=== PATIENT | male | born 1965 | race Caucasian/White ===

== ENCOUNTER 2024-08-23 12:42 | Outpatient (AMB) | payer OTHER, SELFPAY ==
--- NOTE | 2024-08-23 12:49 | MHC.PC.OV ---
Vital Signs 08/23/24 12:53 Height 5 ft 6.34 in Weight 183 lb 8 oz BMI 29.3 BP 110/72 Blood Pressure Location Lt brachial Position Sitting Pulse 83 Pulse Source Pulse Oximeter Temp 97.3 F Temp Source Temporal Artery Scan Pulse Oximetry (%) 98 Oxygen Delivery Method Room Air Intake Visit Reasons: establish care Intake Note: Patient is a new patient here to establish care for Asthma. Transferring care from [place] ([place] Medical records have been requested and have not received. Grain Blender Required: No Audio Visual Specialist: Not Required per policy Accompanied by: Self / Same As Patient Allergies No Known Allergies [No Known Allergies*] Allergy (Verified 08/23/24 13:15) Medication List - Last Reconciled 08/23/24 by Seda Alarcon MD apple cider vinegar 250 mg PO DAILY ascorbic acid (vitamin C) 1 g PO DAILY aspirin 81 mg PO DAILY cholecalciferol (vitamin D3) 50 mcg PO DAILY zbkkxjts-uvc-xhlvv-vit K-lycop 400-20-370 mcg (Men's 50 Plus Multivitamin) 1 tab PO DAILY omeprazole magnesium (Prilosec OTC) 20 mg PO DAILY semaglutide From [facility] Tobacco use date assessed: 08/23/24 Dental Screening Dental Screen Date: 08/23/24 Did you have a dental visit in the last 12 months?: Yes Did you have a dental problem in the last 6 months where you did not have access to dental care?: No Was dental information given to patient?: Patient has dentist HPI establish care HPI Details 30 lbs lost weight 10 weeks. aspirin PFSH Medical History (Updated 08/23/24 @ 13:46 by Seda Alarcon MD) Bochdalek hernia Surgical History (Updated 08/23/24 @ 13:35 by Seda Alarcon MD) History of meniscectomy of right knee History of meniscectomy of left knee Family History (Updated 08/23/24 @ 13:35 by Seda Alarcon MD) Maternal Grandfather Pancreatic cancer Social History (Updated 08/23/24 @ 13:36 by Seda Alarcon MD) Housing: House Alcohol intake: current Alcohol intake frequency: a few times a month Comment: 2x a week 2 drink Patient Tobacco Use Status: Current everyday Tobacco user Tobacco use type: Cigar Cigarettes Per Day: 1 Years Smoked: Cigar a day e-Cigarette/Vaping Use: Never Used Second Hand Smoke Exposure: Yes service: No Current occupational status: employed Cognitive needs: No Hearing needs: No Vision needs: Yes (Glasses) Questionnaire PHQ-9 Over the last 2 weeks, how often have you been bothered by any of the following problems? 1. Little interest or pleasure in doing things: not at all 2. Feeling down, depressed, or hopeless: not at all 3. Trouble falling or staying asleep, or sleeping too much: not at all 4. Feeling tired or having little energy: not at all 5. Poor appetite or overeating: not at all 6. Feeling bad about yourself - or that you are a failure or have let yourself or your family down: not at all 7. Trouble concentrating on things, such as reading the newspaper or watching television: not at all 8. Moving or speaking so slowly that other people could have noticed. Or the opposite - being so fidgety or restless that you have been moving around a lot more than usual: not at all 9. Thoughts that you would be better off or of hurting yourself in some way: not at all Total score: 0 Depression Screening Interpretation: Negative Depression Screening Done: Yes Source: Developed by Drs. Cornelio Roe, Jaimie Cody, Phu Ontiveros and colleagues, with an educational blanca from [employer]. Thrive Questionnaire Date Thrive assessed: 08/21/24 I am a: Patient What is your living situation today?: I have a steady place to live Within the past 12 months, did the food you bought not last and you didn't have the money to get more?: Never true Within the past 12 months, did you worry whether your food would run out before you got money to buy more?: Never true Do you have trouble paying for medicines?: No Do you have trouble getting transportation to medical appointments?: No Do you have trouble paying your heating and electricity bill?: No Do you have trouble taking care of your child, family member or friend?: No Do you have trouble with day-to-day activities such as bathing, preparing meals, shopping, managing finances, etc.?: No Are you currently unemployed and looking for a job?: No Are you interested in more education?: No Please select the resources that you would like help with: None Currently or been in a relationship where the following occur: No concerns reported THRIVE Score: 0 AUDIT C Alcohol Use Questionnaire (AUDIT-C) 1. How often do you have a drink containing alcohol?: 2-3 times a week 2. How many drinks containing alcohol do you have on a typical day when you are drinking?: 1 or 2 3. How often do you have six or more drinks on one occasion?: Never Total Score: 3 HAILY-7 AMB Questionnaire HAILY-7 Date HAILY - 7 assessed: 08/23/24 Feeling nervous, anxious, or on edge: 0 = Not at all Not being able to stop or control worryin = Not at all Worrying too much about different things: 0 = Not at all Trouble relaxin = Not at all Being so restless that it is hard to sit still: 0 = Not at all Becoming easily annoyed or irritable: 0 = Not at all Feeling afraid as if something awful might happen: 0 = Not at all Total HAILY-7 score (0-4 normal; 5-9 mild; 10-14 moderate; 15-21 severe): 0 Source: Developed by Drs. Cornelio Roe, Jaimie Cody, Phu Ontiveros and colleagues, with an educational blanca from [employer]. Physical exam (Primary Care) Vital Signs: Last Vital Signs Temp 97.3 F 08/23/24 12:53 Pulse 83 08/23/24 12:53 BP 110/72 08/23/24 12:53 Pulse Ox 98 08/23/24 12:53 Oxygen Delivery Method Room Air 08/23/24 12:53 BMI result Body Mass Index 29.3 Tobacco/Smoking Status: Tobacco use Status Tobacco use date assessed 08/23/24 08/23/24 12:59 Patient Tobacco Use Status Current everyday Tobacco 08/23/24 13:36 Tobacco use type Cigar 08/23/24 13:36 e-Cigarette/Vaping Use Never Used 08/23/24 13:36 PHQ-9: PHQ-9 Score PHQ-9: Total score 0 08/23/24 13:28 Depression Screening Interpretation: Negative Thrive Assessment: Date of Thrive Assessment Date Thrive assessed 08/21/24 08/23/24 12:50 Currently or been in a relationship where the following occur: No concerns reported Const General: alert; No acute distress Eyes Conjunctivae: conjunctivae normal Resp Auscultation: clear to auscultation bilaterally Cardio Rate: regular rate Rhythm: regular rhythm GI Inspection: Yes normal to inspection Extrem General: Yes normal to inspection and No edema Coding Level of Care Code New Pt Level 4 (36747) Diagnoses Overweight (BMI 25.0-29.9) E66.3 GERD (gastroesophageal reflux disease) K21.9 Asthma J45.909 CHELLE (obstructive sleep apnea) G47.33 Colon cancer screening Z12.11 History of nicotine dependence Z87.891 Assessment & Plan Assessment & Plan (1) Overweight (BMI 25.0-29.9): Code(s): E66.3 - Overweight Category: Medical Plan: Diet and exercise (2) GERD (gastroesophageal reflux disease): Code(s): K21.9 - Gastro-esophageal reflux disease without esophagitis Category: Medical Plan: Avoid the foods that causes that usually spicy foods, tomato products, juices, coffee, soda and foods that your sensitive to. After eating do not lie down, allow 3-4 hours before in lie down. And keep the head of bed above 30 degrees to avoid the acid from going up. (3) Asthma: Code(s): J45.909 - Unspecified asthma, uncomplicated Category: Medical (4) CHELLE (obstructive sleep apnea): Comment: [facility] Code(s): G47.33 - Obstructive sleep apnea (adult) (pediatric) Category: Medical (5) Colon cancer screening: Code(s): Z12.11 - Encounter for screening for malignant neoplasm of colon Category: Medical (6) History of nicotine dependence: Code(s): Z87.891 - Personal history of nicotine dependence Category: Medical Plan History of Present Illness Health Maintenance - Vaccinations: Received shingles vaccination approximately two years ago; hepatitis series completed 20 years ago. - Annual lung cancer screening due to smoking history. - Previous colonoscopy performed in 2016 with plans for follow-up. - Lifestyle: Engaged in regular physical activity and dietary improvements to manage weight and hyperlipidemia. 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 - Family Status: , no specific details on children discussed. - Substance Use: Daily usage of cigars; consumes alcohol twice weekly. - Exercise: Active lifestyle including playing golf multiple times a week and avoiding elevator use. - Nutrition: Improved diet with reduced intake; takes fiber supplement ordered online. Review of Systems - Constitutional: Denies nausea, vomiting, fever. - Respiratory: Denies current asthma exacerbations. - Cardiovascular: Denies heart problems. - Gastrointestinal: Reports history of GERD, denied current abdominal pain or constipation. - Neurological: Denies history of seizures. - Musculoskeletal: Acknowledges past bilateral knee surgeries. - Hematologic/Lymphatic: Denies bleeding concerns. Physical Exam - General- No swelling or pain reported during examination. - Respiratory- Unremarkable, normal breath sounds. - Gastrointestinal- Abdomen without notable abnormalities. Results Plan The plan is to continue Omeprazole for GERD and maintain the current regimen of Semaglutide to support further weight loss goals. Dietary improvements will persist to manage hyperlipidemia. The patient will continue engagement in physical activity, such as golf, to aid in weight management. I instructed the patient on the potential risks of ongoing cigar usage, emphasizing the importance of regular health screenings and vaccinations. Patient was informed and verbally consented to the use of an ambient scribe for clinic note documentation during this visit. Discussion Notes I discussed the primary diagnosis of GERD, along with current management strategies involving Omeprazole with the patient, addressing relief and potential aggravating factors like NSAID use. For weight management, the patient is on Compounded Semaglutide, with close monitoring to achieve the target weight. I reviewed the benefits and potential risks, like transient heartburn due to slow gastric motility and limited long-term data of Semaglutide use. The patient consented to preventive health strategies, including recommended colonoscopy and ongoing lung cancer screening. We discussed stopping cigars as a preventive measure against respiratory sequelae. Patient Instructions - Continue Omeprazole as prescribed for GERD. - Administer Semaglutide injections weekly to continue weight loss. - Aim for healthy dietary choices to manage cholesterol levels. - Maintain regular physical activity and report any changes in symptoms. - Schedule colonoscopy screening as planned. - Avoid NSAIDs to prevent possible esophageal irritation. - Consider reduction or cessation of cigar smoking. - Ensure routine health screenings and vaccination updates. - Arrange for blood tests while fasting and follow up on any significant results. Orders: Orders Complete Blood Count Auto Diff Today K21.9 - Gastro-esophageal reflux disease without esophagitis Free T4 (Free Thyroxine) Today K21.9 - Gastro-esophageal reflux disease without esophagitis Lipid Panel Today E78.00 - Pure hypercholesterolemia, unspecified, K21.9 - Gastro-esophageal reflux disease without esophagitis Prostate Specific Antigen Scr Today K21.9 - Gastro-esophageal reflux disease without esophagitis Magnesium Today K21.9 - Gastro-esophageal reflux disease without esophagitis Uric Acid Today K21.9 - Gastro-esophageal reflux disease without esophagitis Comprehensive Met. Panel Today K21.9 - Gastro-esophageal reflux disease without esophagitis Thyroid Stimulating Hormone Today K21.9 - Gastro-esophageal reflux disease without esophagitis Vitamin B12 and Folate Today K21.9 - Gastro-esophageal reflux disease without esophagitis UA CC w/rflx Micro + Cult Today K21.9 - Gastro-esophageal reflux disease without esophagitis, R30.0 - Dysuria Referrals Gastroenterology Referral Z12.11 - Encounter for screening for malignant neoplasm of colon Lung Cancer Screening Referral Z87.891 - Personal history of nicotine dependence Medications: New albuterol sulfate 90 mcg/actuation 2 puffs inhalation Q4-6H PRN 8.5 grams 0RF Shortness Of Breath J45.909 - Unspecified asthma, uncomplicated
[2024-08-23 12:53] VITALS: BP 110/72; PULSE 83; TEMP 36.3; O2SAT 98; BMI 29.3
== END 2024-08-23 14:04 | disposition home or self-care (01) ==
PROVIDERS: PCP Internal Medicine; Visit Provider Internal Medicine
DX: E66.3 Overweight (principal); K21.9 Gastro-esophageal reflux disease without esophagitis; J45.909 Unspecified asthma, uncomplicated; G47.33 Obstructive sleep apnea (adult) (pediatric); Z12.11 Encounter for screening for malignant neoplasm of colon; Z87.891 Personal history of nicotine dependence

== ENCOUNTER → 2024-08-23 12:42 | Outpatient (BNVA) | payer OTHER, SELFPAY | PROVIDERS: Visit Provider Internal Medicine ==

== ENCOUNTER 2024-08-29 06:08 | Outpatient (REF) | payer OTHER, SELFPAY ==
[2024-08-29 10:10] LABS: MANUAL DIFF FLAG NO
[2024-08-29 10:18] LABS: Basophils Percent Auto 0.6 % (0-2); Eosinophils Absolute Auto 0.2 X10*3/uL (0.0-0.4); Eosinophils Percent Auto 4.2 % (0-4); Hematocrit 42.1 % (42.0-52.0); Hemoglobin 14.6 g/dl (14.0-18.0); Imm Gran Abs Auto 0.02 X10*3/uL (0.00-0.03); Imm Gran Pct Auto 0.4 % (0.0-0.4); Lymphocytes Absolute Auto 1.2 X10*3/uL (1.2-4.9); Lymphocytes Percent Auto 24.4 % (20-40); Mean Corpuscular HGB Conc 34.7 g/dl (31.0-36.0); Mean Corpuscular Hemoglobin 31.1 pg (27.0-33.0); Mean Corpuscular Volume 89.8 fL (80.0-98.0); Mean Platelet Volume 10.5 fL (9.4-12.4); Monocytes Absolute Auto 0.3 X10*3/uL (0.1-1.2); Monocytes Percent Auto 6.9 % (2-11); Neutrophils Percent Auto 63.5 % (45-73); Platelet Count 234 X10*3/uL (160-400); Red Blood Count 4.69 X10*6/uL (4.60-5.80); Red Cell Distribution Width 12.2 % (11.0-16.0); White Blood Count 4.8 X10*3/uL (4.8-10.8)
[2024-08-29 11:08] LABS: Alanine Aminotransferase 18 U/L (0-40); Albumin Level 4.4 g/dL (3.5-5.0); Alkaline Phosphatase 40 U/L (39-117); Anion Gap 14 (12-20); Aspartate Amino Transferase 28 U/L (5-37); Bilirubin Total 0.8 mg/dL (0.0-1.0); Blood Urea Nitrogen 16 mg/dL (9-16); Calcium 9.5 mg/dL (8.4-10.2); Carbon Dioxide 23 mmol/L (22-29); Chloride 109 mmol/L (96-108); Cholesterol 148 mg/dL (<200); Estimated Glomerular Filt Rate > 60; Free T4 (Free Thyroxine) 1.05 ng/dL (0.71-1.85); Glucose Random 94 mg/dL (60-115); HDL Cholesterol 38 mg/dL (>40); LDL Cholesterol Calculated 85 mg/dL (<100); Magnesium 2.1 mg/dL (1.6-2.6); Potassium 4.2 mmol/L (3.3-5.1); Sodium 142 mmol/L (135-145); Thyroid Stimulating Hormone 1.34 uIU/mL (0.32-4.0); Total Protein 6.5 g/dL (6.5-8.0); Triglycerides 128 mg/dL (<150); Uric Acid 6.3 mg/dL (3.4-7.0)
[2024-08-29 11:12] LABS: Appearance Urine Turbid; Color Urine Yellow; Glucose Urine UA Negative (Negative); Leukocyte Esterase Urine Negative (Negative); Nitrite Urine Negative (Negative); PH 5.5 (5.0-9.0); Urine Blood Negative (Negative); Urine Ketones 15 mg/dL (Negative); Urine Protein Negative (Neg-Trace)
[2024-08-29 11:19] LABS: Folate 13.4 ng/mL (> or = 4.0); Prostate Specific Antigen Scr 0.92 ng/mL (<0.05-4.0); Vitamin B12 225 pg/mL (200-900)
== END 2024-08-29 06:09 | disposition home or self-care (01) ==
LOC: HO.HMGCLDS 06:08
PROVIDERS: PCP Internal Medicine; Visit Provider Internal Medicine
DX: K21.9 Gastro-esophageal reflux disease without esophagitis (principal); E78.00 Pure hypercholesterolemia, unspecified; R30.0 Dysuria; Z12.5 Encounter for screening for malignant neoplasm of prostate
CPT/HCPCS: 36415; 80053; 80061; 81003; 82607; 82746; 83735; 84153; 84439; 84443; 84550; 85025

== ENCOUNTER 2024-10-18 08:39 | Outpatient (AMB) | payer OTHER, SELFPAY ==
--- NOTE | 2024-10-18 08:44 | A.OFFVIS_ITS ---
Vital Signs 10/18/24 08:45 Height 5 ft 6.34 in Weight 176 lb 5.917 oz BMI 28.2 BP 135/71 Blood Pressure Location Lt brachial Position Sitting Pulse 82 Intake Visit Reasons: Orange screening Intake Note: Kumar presents in the office as a colonoscopy screening. CC: States that he wants to have a colonoscopy - it was a 10 year colo recall but he wants to do everything before he retires! 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 Referred by PCP for pre colonoscopy screening. His last colonoscopy was in 2016 at another institution, with normal findings and 10-year recall recommended. Pt desires early screening as proactive health measure prior to upcoming penitentiary. Reports chronic constipation since starting semaglutide (Ozempic) 6 mos ago; stools 2-3x/wk, hard if not using OTC powder stool softener (name unknown), which softens stool but does not increase frequency. Constipation began after Ozempic initiation; prior to this, bowel habits were regular. GERD sx present for several yrs: previously burning sensation and transient dysphagia with steak, now resolved with OTC omeprazole (5x/wk) and dietary modification. Shares he previously used NSAIDs heavily (hx liz), now uses Tylenol and occasional Motrin PRN, no current NSAID dependence. Reports well-controlled asthma except with URIs, uses albuterol inhaler PRN. CHELLE managed with [facility]. No cardiac, ux specialist care otherwise; participates in annual lung CA screening. Patient denies: fever/chills, n/v, appetite changes, regurgitation, dysphasia, unintentional wt loss, ab pain or melena/hematochezia. SOCIAL HISTORY - Alcohol: 1 beer/wk (); occasional nip while golfing, minimal. - Tobacco: Former cigarette smoker (30+ yrs, quit 10 yrs ago); current daily cigar (no inhalation, past 2 yrs). - Drugs: Denies marijuana/rec drug use; uses OTC melatonin for sleep (no THC). 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 - Exercise: Walks stairs, walks w/ , golf (rides cart). - family hx as below -denies personal hx of CA -tolerated anesthesia in the past without difficulty. [facility] Medical History (Updated 10/18/24 @ 09:32 by Tammie Spain CNP) Constipation Personal history of nicotine dependence Bochdalek hernia Surgical History (Updated 10/18/24 @ 08:47 by BRETT Chong) Hx of colonoscopy History of esophagogastroduodenoscopy (EGD) History of meniscectomy of right knee History of meniscectomy of left knee Family History Maternal Grandfather Pancreatic cancer Social History Housing: House Alcohol intake: current Alcohol intake frequency: a few times a month Comment: 2x a week 2 drink Patient Tobacco Use Status: Current everyday Tobacco user Tobacco use type: Cigar Cigarettes Per Day: 1 Years Smoked: Cigar a day e-Cigarette/Vaping Use: Never Used Second Hand Smoke Exposure: Yes service: No Current occupational status: employed Cognitive needs: No Hearing needs: No Vision needs: Yes (Glasses) Review of Systems Const Reports as per HPI ENT Reports as per HPI Card Reports as per HPI Resp Reports as per HPI GI Reports as per HPI Reports as per HPI Physical Exam Vital Signs: Last Vital Signs Pulse 82 10/18/24 08:45 BP 135/71 10/18/24 08:45 BMI result Body Mass Index 28.2 Const General: healthy appearing, no acute distress and well developed Nutritional Appearance: well nourished Orientation/consciousness: patient oriented x3 HEENT Head: Yes normal to inspection, Yes normocephalic and Yes atraumatic Face and sinus: Yes normal facial exam Eyes General: appearance normal, both eyes and all related structures Neck Neck: Yes normal visual inspection Resp Effort & Inspection: normal respiratory effort, able to speak in complete sentences, no tracheal deviation and symmetric chest movement Auscultation: clear to auscultation bilaterally Cardio Jugular venous distension: no JVD Rate: regular rate Rhythm: regular rhythm Heart sounds: S1 normal heart sound present, S2 normal heart sound present, no gallops and no murmurs GI Inspection: Yes normal to inspection and No distended Palpation (GI): Soft to palpation, not firm, nontender and No hepatosplenomegaly present Auscultation: normal bowel sounds Neuro General: patient oriented x3 Gait exam (Neuro): Normal gait present Psych Appearance: grossly normal Mental Status: mental status grossly normal Speech and movement: Normal speech and movement present Affect: normal affect Attitude: cooperative Thought process: Normal thought process present Thought content: Normal thought content present Insight: Good insight present (Psych) Judgement: Good judgement present (Psych) Assessment & Plan Assessment & Plan (1) Colon cancer screening: Code(s): Z12.11 - Encounter for screening for malignant neoplasm of colon Category: Medical Plan: Last colonoscopy 2015 (normal) at outside facility, no worrisome hx Diagnostic Tests: Prescriptions for laxative tablets and Miralax sent to pharmacy; instructions for Gatorade purchase and clear liquid diet given. Medications: - understands to hold Ozempic and aspirin 7 days prior to procedure. - Use Tylenol if needed for pain. Patient educated on procedure preparation, including avoiding certain foods and ensuring clear liquid intake. Advised on necessity for ride post-procedure due to sedation. (2) Constipation: Code(s): K59.00 - Constipation, unspecified Category: Medical Qualifiers: Constipation type: drug induced constipation Qualified Code(s): K59.03 - Drug induced constipation Plan: Constipation onset w/ Ozempic, partial response to OTC softener, no alarm sx. Monitor; no acute workup in absence of red flags. Medications: Continue OTC stool softener as tolerated. Reinforced lifestyle modifications to promote regularity: -higher fiber diet, examples provided -adequate hydration with water -150 minutes of moderate intensity exercise per week (3) GERD (gastroesophageal reflux disease): Code(s): K21.9 - Gastro-esophageal reflux disease without esophagitis Category: Medical Qualifiers: Esophagitis presence: esophagitis presence not specified Qualified Code(s): K21.9 - Gastro-esophageal reflux disease without esophagitis Plan: - Chronic sx, past poor control w/ dietary/NSAID triggers; current good control w/ OTC omeprazole + avoidance of triggers. Plan: - Additional Tests: EGD scheduled concurrent w/ colonoscopy due to chronicity, past NSAID use, and hx of intermittent dysphagia/burning. - Medications: Continue omeprazole 20mg PO ~5x/wk, PRN antacids as indicated; avoid NSAIDs. Encouraged to take omeprazole as prescribed, taken at least 30-60 minutes before a meal. Education on GERD prevention : -Advised against heavy meals; encouraged small, frequent meals instead of large ones. - Instructed to remain upright for 2?3 hours after eating. - Advised to avoid late-night meals, spicy foods, caffeine, alcohol, known dietary triggers, and tight-fitting clothing. - Emphasis placed on gradual implementation of lifestyle changes to improve adherence and symptom control. Plan Follow-up after endoscopy are sooner as needed Time: I spent a total of 25 minutes on the date of encounter which includes: Preparing to see the patient (reviewed previous documentation, test results and medical history) Performing a medically appropriate exam and/or evaluation Ordering medications, tests, and procedures Documenting clinical information in the health record Medications: New bisacodyl Take four tablets once for 1 day per colonoscopy instructions 5 mg PO ONCE 1 day 4 tabs 0RF polyethylene glycol 3350 (Miralax) per colonoscopy prep instructions 238 grams PO ONCE 238 grams 0RF Coding Level of Care Code New Pt New Pt Level 3 (79035) Patient Type New Diagnoses Colon cancer screening Z12.11 Drug-induced constipation K59.03 Constipation type: drug induced constipation Gastroesophageal reflux disease, unspecified whether esophagitis present K21.9 Esophagitis presence: esophagitis presence not specified
[2024-10-18 08:45] VITALS: BP 135/71; PULSE 82; BMI 28.2
--- OUTSIDE RECORDS SUMMARY | 2024-10-18 09:06 | XMS_ITS | Clinical Summary ---
Author Organization [facility] Address [address] [place] [phone] Phone Care Team Providers Care Dry Wall Finisher Name Role Phone Irvin Johnson MD Primary Care Provider [phone]- [phone] Allergies No known active allergies Medications albuterol HFA (PROAIR HFA ; PROVENTIL HFA ; VENTOLIN HFA) 90 mcg/actuation inhaler Inhale 2 Puffs into the lungs every 4 hours as needed for Cough or Wheezing. 08/20/2022 Active aspirin 81 mg EC tablet Take 1 Tablet by mouth daily. Active Active Problems Problem Noted Date Diagnosed Date Bochdalek hernia 10/24/2023 Overview (05/03/2024): Last Assessment & Plan: 58-year-old man former smoker part of the lung cancer screening program had a low-dose CT scan of the chest done on 10/08/2023 which had an incidental finding of a small left-sided Bochdalek hernia. I could not elicit any symptoms that might be attributed to this and the hernia is quite small containing only fat. 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 Without symptoms I do not see any reason to repair this hernia and we discussed what symptoms to look out for such as pain, vomiting, or other obstructive type symptoms. All questions were answered. He can follow-up with me on an as-needed basis moving forward. PLMD (periodic limb movement disorder) 2 Obstructive sleep apnea 02/09/2017 Overview (05/03/2024): [facility] Home Polysomnogram: Date 02/03/2017; AHI 5, Unclassified apneas 0; Obstructive apneas 2; Central apneas 0; Mixed apneas 0; hypopneas 19; average oxygen saturation 93% (lowest 79% without saturations <88% for 5% or more of study) [facility] Polysomnogram treatment study. Date 04/27/2017 . SE 86 % SM 90 %; spent 16 % of the study in REM. At the optimal pressure of CPAP @ 9; RDI 0.2 (AHI 0.2), Central apneas 0; Obstructive apneas 0; Mixed apneas 0; hypopneas 1; RERAs 0; and, average oxygen saturation was 95%. For the entire study, PLMs ~38. [facility] diagnostic polysomnogram 06/04/2021. Weight 201; BMI 33. AHI 15; REM AHI 26. 86 hypopneas; no apneas. Average oxygen saturation 92% with oxygen sharon 78%. Time with saturations less than 89% was 11.6 minutes. PLM's at 16. Obstructive sleep apnea-moderate with all hypopneas; without nocturnal hypoxemia but with PLMD per 2021 polysomnogram. COPD (chronic obstructive pu lmonary disease) ([facility] V24, [facility] V28) 10/29/2016 Chronic RUQ pain 12/15/2012 Overview (05/03/2024): Onset approx 1970's. Normal CT, US, EGD 2012. Improved with 30 lb weight loss as of 09/05/2015. Asthma 09/05/2012 Hyperlipidemia 01/09/2010 Encounters Date Type Department Care Team Description 09/21/2024 Telephone Lung Screening Program - [address] [phone] Lali oCdy [place] Appointment (1st notification) from Last 3 Months Immunizations Name Administration Dates Next Due Influenza trivalent, 0.5mL, preservative free (Fluarix; FluLaval; Fluzone) ages 6mo and older (Afluria) 3 years and older 02/24/2011 Influenza, Unspecified 02/13/2021 Pneumococcal polysaccharide 23 valent (Pneumovax 23) 2yo and older 06/09/2016 Tdap Tetanus diptheria acell ular pertussis (Boostrix; Adacel) 7yo and older 06/30/2021,01/05/2010 Zoster recombinant (Shingrix) 19yo and older ,03/01/2022 Surgical History Surgery Date Site/Laterality Comments ESOPHAGOGASTRODUODENOSCOPY 2012 PROCEDURE: [place] ESOPHAGOGASTRODUODENOSCOPY TRANSORAL DIAGNOSTIC; COMMENT: normal COLONOSCOPY 09/05/2015 PROCEDURE: HISTORICAL COLONOSCOPY; COMMENT: normal KNEE SURGERY Left PROCEDURE: HISTORICAL KNEE SURGERY; COMMENT: meniscal tear Medical History Medical History Date Comments Hyperlipidemia 01/09/2010 DX:Hyperlipidemi a Asthma 09/05/2012 DX:Asthma Chronic RUQ pain 12/15/2012 DX:Chronic RUQ pain; COMMENT: Normal CT, US, EGD 2012. Family History Medical History Relation Name Comments Prostate cancer Maternal Grandfather Other: COPD Mother Autoimmune disease Neg Hx Breast cancer Neg Hx Colon cancer Neg Hx Coronary artery disease Neg Hx Diabetes Neg Hx Heart attack Neg Hx Heart failure Neg Hx Hyperlipidemia Neg Hx Hypertension Neg Hx Mental illness Neg Hx Sleep apnea Neg Hx Thyroid disease Neg Hx Relation Name Status Comments Father Alive Maternal Grandfather (Age 65) pr ostate cancer Maternal Grandmother (Age 70) Mother Alive asthma Paternal Grandfather (Age 80) Paternal Grandmother esophag eal cancer Sister Alive asthma Social History Tobacco Use Types Packs/Day Years Used Date Smoking Tobacco: Former Cigarettes 1 32.3 0 05/16/1980 - 09/13/2012 Smokeless Tobacco: Former Quit: 05/16/1983 Alcohol Use Standard Drinks/Week Comments Yes 5 (1 standard drink = 0.6 oz pur e alcohol) Sex and Gender Information Value Date Recorded Sex Assigned at Not on file Legal Sex Male 2:30 PM EST Gender Identity Not on file Sexual Orientation Not on file Obstetrics History Last Filed Vital Signs Vital Sign Reading Time Taken Comments Blood Pressure 127/78 12/05/2023 3:25 PM EDT Sitting R Arm Pulse 81 12/05/2023 3:25 PM EDT Temperature - - Respiratory Rate - - Oxygen Saturation - - Inhaled Oxygen Concentration - - Weight 94.8 kg (209 lb 1.6 oz) 12/05/2023 3:25 PM EDT Height 167.6 cm (5' 6 ) 12/05/2023 3:25 PM EDT Body Mass Index 33.75 12/05/2023 3:25 PM EDT Plan of Treatment Health Maintenance Due Date Last Done Comments Hepatitis B Vaccines (1 of 3 - 19+ 3-dose series) 1984 Pneumococcal Vaccine: 50+ Years (2 of 2 - PCV) 06/09/2017 06/09/2016 Pneumococcal Vaccine: Pediatrics (0 to 5 Years) and At-Risk Patients (6 to 64 Years) (2 of 2 - PCV) 06/09/2017 06/09/2016 Depression Screening 04/23/2022 HIV Screening 04/23/2022 Social Influencers of Health Screening 04/23/2022 COVID-19 Vaccine (4 - 2023-2 5 season) 2024 03/20/2021, 06/27/2020, 05/29/2020 Lung Cancer Screening (Low Dose CT) 10/07/2024 10/08/2023, 09/23/2022, 09/15/2021 Influenza Vaccine (Season Ended) 2025 02/13/2021, 02/24/2011 Colorectal Cancer Screening: Colonoscopy 09/04/2025 09/05/2015 Cholesterol Screening (Lipid Panel) 10/24/2028 10/25/2023, 10/25/2023 DTaP,Tdap,and Td Vaccines (3 - Td or Tdap) 06/30/2031 06/30/2021, 01/05/2010 RSV Immunization Adult Patients (1 - 1-dose 75+ series) 2040 Hepatitis C Screening Completed 05/20/2015 Zoster Vaccines Completed 06/10/2022, 03/01/2022 HIB Vaccines Aged Out No longer eligi ble based on patient's age to complete this topic HPV Vaccines Aged Out No longer eligi ble based on patient's age to complete this topic Hepatitis A Vaccines Aged Out No long er eligible based on patient's age to complete this topic IPV Vaccines Aged Out No longer eligi ble based on patient's age to complete this topic MMR Vaccines Aged Out No longer eligi ble based on patient's age to complete this topic Meningococcal ACWY Vaccine Aged Out N o longer eligible based on patient's age to complete this topic Meningococcal B Vaccine Aged Out No l onger eligible based on patient's age to complete this topic RSV Immunization Patients Under 20 months Aged Out No longer eligible b ased on patient's age to complete this topic Varicella Vaccines Aged Out No longer eligible based on patient's age to complete this topic Procedures Procedure Name Priority Date/Time Associated Diagnosis Comments LIPID PANEL Routine 10/25/2023 CT LUNG SCREENING LOW DOSE Routine 09/23/2022 7:44 PM EDT Personal history of nicotine dependence HM COLONOSCOPY Routine 09/05/2015 HEPATITIS C SCREENING Routine 05/20/2015 from Last 3 Months or Most Recently Relevant to Health Maintenance Results * (ABNORMAL) Lipid panel (10/25/2023) LDL/HDL Ratio 6(A) 0 - 4 Triglycerides 422(A) 0 - 150 mg/dL Cholesterol 201(A) 0 - 200 mg/dL HDL 34(A) >=40 mg/dL LDL Cholesterol 83 0 - 100 mg/dL Blood Venous blood specimen / Unknown us Historical Provider LAB BLOOD ORDERABLES Tiana phillips Result * CT LUNG SCREENING LOW DOSE (09/23/2022 7:44 PM EDT) Anatomical Region Laterality Modality Computed Tomogra phy 09/18/2022 7:22 AM EDT Narrative 09/23/2022 7:44 PM EDT [facility] Diagnostic Imaging Department [address] [place] [id number] Patient: ??BUDDY DUMONT,DARRYL Bullock ?/Age/Sex: 1965 - 57 - M Unit#: ??[id number] ? Location/Status: ??SPDICATLS/REG CLI ? Mnemonic/Ordering Site: ??CTLUNGLD/SPCT Ordering Physician: ??YUNG LOPEZ MD CT Lung Screening Low Dose - 09/18/22 - PROCEDURE: Chest CT INDICATION: Former smoker, lung cancer screening, 60 pack year smoking history TECHNIQUE: Chest CT without contrast. Multi planar reformats were created and interpreted. The examination was performed utilizing dose reduction techniques. Total DLP 154 COMPARISON: ??09/15/2021 FINDINGS: LUNGS/PLEURA: Central airways are patent. ??No new or suspicious pulmonary nodules. ??No pleural effusion or pneumothorax. ??Linear atelectasis/scarring seen at the lung bases. MEDIASTINUM: Thyroid gland is unremarkable. No mediastinal or hilar lymphadenopathy. Cardiac chambers are normal in size. No pericardial effusion. Esophagus is normal. CHEST WALL: No axillary lymphadenopathy or superficial hematoma. ??Right chest wall vagal nerve stimulator noted. UPPER ABDOMEN:Hepatic steatosis. BONES: Bones are normal for age. IMPRESSION: No new or suspicious pulmonary nodules. ??Lung RADS 1-negative. ??Recommend continued screening with low-dose chest CT in 12 months. Dictating Physician: ??BERNICE VASQUES MD Electronically Signed by: ??BERNICE VASQUES MD Dic Date/Time: ??09/23/221934 Sign date/Time: ??09/23/221943 Procedure Note Bernice Vasques MD - 06/17/2023 [facility] Diagnostic Imaging Department [address] [place] [id number] Patient: DARRYL THOMPSON JR Kobe /Age/Sex: 1965 - 57 - M Unit#: [id number] Location/Status: SPDICATLS/REG CLI Mnemonic/Ordering Site: [facility] Ordering Physician: YUNG LOPEZ MD CT Lung Screening Low Dose - 09/18/22 - PROCEDURE: Chest CT INDICATION: Former smoker, lung cancer screening, 60 pack year smokinghistory TECHNIQUE: Chest CT without contrast. Multi planar reformats were createdand interpreted. The examination was performed utilizing dose reductiontechniques. Total DLP 154 COMPARISON: 09/15/2021 FINDINGS: LUNGS/PLEURA: Central airways are patent. No new or suspiciouspulmonary nodules. No pleural effusion or pneumothorax. Linearatelectasis/scarring seen at the lung bases. MEDIASTINUM: Thyroid gland is unremarkable. No mediastinal or hilar lymphadenopathy. Cardiac chambers are normal in size. No pericardialeffusion. Esophagus is normal. CHEST WALL: No axillary lymphadenopathy or superficial hematoma. Rightchest wall vagal nerve stimulator noted. UPPER ABDOMEN:Hepatic steatosis. BONES: Bones are normal for age. IMPRESSION: No new or suspicious pulmonary nodules. Lung RADS 1-negative.Recommend continued screening with low-dose chest CT in 12 months. Dictating Physician: BERNICE VASQUES MD Electronically Signed by: BERNICE VASQUES MD Dic Date/Time: 09/23/221934 Sign date/Time: 09/23/221943 Yung Lopez MD IMG CT PROCEDURES Final Result * Hm Colonoscopy (09/05/2015) Colonoscopy normal, abstracted Anatomical Region Laterality Modality Other Historical Provider HEALTH MAINTENANCE Final Result * Hepatitis C Screening (05/20/2015) Hepatitis C Screening abstracted us Historical Provider HEALTH MAINTENANCE Final Result from Last 3 Months or Most Recently Relevant to Health Maintenance Insurance [employer] Care Teams Dry Wall Finisher Relationship Specialty Start Date End Date Irvin Johnson MD [address] [place] [address] PCP - General Internal Medicine 12/28/21
== END 2024-10-18 09:18 | disposition home or self-care (01) ==
LOC: HO.HGI 08:40
PROVIDERS: PCP Internal Medicine; Visit Provider Nurse Practitioner Family
DX: Z01.818 Encounter for other preprocedural examination (principal); Z12.11 Encounter for screening for malignant neoplasm of colon; K59.03 Drug induced constipation; K21.9 Gastro-esophageal reflux disease without esophagitis
CPT/HCPCS: S0285

== ENCOUNTER → 2024-10-18 08:39 | Outpatient (BNVA) | payer OTHER, SELFPAY | PROVIDERS: PCP Internal Medicine; Visit Provider Nurse Practitioner Family ==

== ENCOUNTER 2024-11-02 10:43 | Outpatient (AMB) | payer OTHER, SELFPAY ==
--- NOTE | 2024-11-02 07:50 | A.OFFVIS_ITS ---
Intake Visit Reasons: Former Smoker Allergies No Known Allergies (No Known Allergies*) Allergy (Verified 10/18/24 08:47) HPI HPI Former Smoker: Details: Initial visit for this 59yo smoker with a 25+PYH. Patient started smoking at age 15 for 29 years at 1ppd. He quit smoking cigarettes 15 years ago In last 2 years started smoking cigars - 4 cigars a weeks. . Denies marijuana use. Denies second hand smoke exposure. Denies exposure to chemicals or substances like asbestos. . Denies known family history of lung cancer. Denies personal history of cancers. Denies chest CT in last year. . Denies recent travel outside the [place]. Denies recent respiratory illness or recent hospitalization for respiratory issues. Reports history testing positive for COVID. Admits receiving COVID Vaccine. . Reports history CHELLE- has inspire implant in right chest. Denies fever, chills, new/worsening cough, hemoptysis, hoarseness or dysphagia. Denies significant chest pain, significant dyspnea or unintentional weight loss. Patient Lung Cancer Screening Questionnaire reviewed with patient by provider. . Shared Decision Making Completed. Patient meets criteria. Discussed in detail with patient, the risk vs benefit of LDCT screening. Patient consents to proceed with scan. Discussed and encouraged smoking cessation. [facility] Medical History (Updated 11/02/24 @ 10:59 by Larisa Tam PA-C) Constipation Personal history of nicotine dependence Bochdalek hernia Surgical History (Updated 10/18/24 @ 08:47 by BRETT Chong) Hx of colonoscopy History of esophagogastroduodenoscopy (EGD) History of meniscectomy of right knee History of meniscectomy of left knee Family History Maternal Grandfather Pancreatic cancer Social History (Updated 11/02/24 @ 11:00 by Larisa Tam PA-C) Housing: House Alcohol intake: current Alcohol intake frequency: a few times a month Comment: 2x a week 2 drink Patient Tobacco Use Status: Current everyday Tobacco user Tobacco use type: Cigar Cigarettes Per Day: 1 Years Smoked: (onset 15yo, 1ppd x 29yrs, quit cigs 2009, smokes cigars 4/wk- 25+PYH) e-Cigarette/Vaping Use: Never Used Second Hand Smoke Exposure: Yes service: No Current occupational status: employed Cognitive needs: No Hearing needs: No Vision needs: Yes (Glasses) Assessment & Plan Assessment & Plan (1) Personal history of nicotine dependence: Comment: onset 15yo, 1ppd x 29yrs, quit cigarettes 2009, smokes cigars - 25+PYH) Code(s): Z87.891 - Personal history of nicotine dependence Category: Medical Plan: - SDM visit completed today in office. - Patient meets criteria for LDCT for lung cancer screening purposes and is asymptomatic. - Smoking cessation counseling offered. Patients can always call [phone]. - Will arrange for a LDCT scan of the chest for screening purposes at [facility]. - Risks, benefits, and alternatives were discussed in detail and the patient agrees to proceed. - Risks discussed include but are not limited to: radiation exposure, anxiety during testing and while awaiting results, false negatives, false positives and possibility of additional intervention such as further imaging or surgical procedures for benign disease. - Benefits are obviously detection of lung cancer at an early stage which can lead to improved outcomes. - Discussed the importance of screening program compliance with adherence to yearly LDCT scan as scheduled - or sooner interval scans for personalized screening regimen. - Discussed follow up plan. Our office will send a letter discussing results and if needed set up phone call and office visit based on CT findings. - Patient educated on results categorization and the management decisions for suspicious findings potentially found on the screening LDCT scan. Any patient with a Lung RADS score of 3 or 4 will be reviewed by a multidisciplinary team at [facility] to form a plan of action in regards to scan findings. - If further work up is warranted for a suspicious lung finding this will be followed by the Lung Cancer Screening program in conjunction with the Thoracic Surgery Department at [facility]. - A copy of the office note and LDCT will be sent to the patient's PCP - as well as documentation on any associated further plans of care. - Incidental findings on LDCT are the PCP's responsibility. These findings are indicated with an S finding on the LDCT Assessment. A note discussing the findings will be sent to the PCP who is then responsible for further management. - All questions answered.? Coding Level of Care Code Lung Cancer Screening G0296 Diagnoses Personal history of nicotine dependence Z87.891
--- OUTSIDE RECORDS SUMMARY | 2024-11-02 11:11 | XMS_ITS | Clinical Summary ---
Author Organization [facility] Address [address] [place] [phone] Phone Care Team Providers Care Voice Over Announcer Name Role Phone Irvin Johnson MD Primary Care Provider +1- [phone] Allergies No known active allergies Medications albuterol [...] 2 Obstructive sleep apnea 02/09/2017 Overview (05/03/2024): [facility] Home Polysomnogram: Date 02/03/2017; AHI 5, Unclassified apneas 0; Obstructive apneas 2; Central apneas 0; Mixed apneas 0; hypopneas 19; average oxygen saturation 93% (lowest 79% without saturations <88% for 5% or more of study) [facility] Polysomnogram treatment study. Date 04/27/2017 . SE 86 % SM 90 %; spent 16 % of the study in REM. At the optimal pressure of CPAP @ 9; RDI 0.2 (AHI 0.2), Central apneas 0; Obstructive apneas 0; Mixed apneas 0; hypopneas 1; RERAs 0; and, average oxygen saturation was 95%. For the entire study, PLMs ~38. [facility] diagnostic polysomnogram 06/04/2021. Weight 201; BMI 33. AHI 15; REM AHI 26. 86 hypopneas; no apneas. Average oxygen saturation 92% with oxygen sharon 78%. Time with saturations less than 89% was 11.6 minutes. PLM's at 16. Obstructive sleep apnea-moderate with all hypopneas; without nocturnal hypoxemia but with PLMD per 2021 polysomnogram. COPD (chronic obstructive pu lmonary disease) ([facility] V24, [facility] V28) 10/29/2016 Chronic RUQ pain 12/15/2012 Overview (05/03/2024): Onset approx 1970's. Normal CT, US, EGD 2012. Improved with 30 lb weight loss as of 09/05/2015. Asthma 09/05/2012 Hyperlipidemia 01/09/2010 Encounters Date Type Department Care Team Description 09/21/2024 Telephone Lung Screening Program - [address] [phone] Lali Cody [place] Appointment (1st notification) from Last 3 [...] Surgery Date Site/Laterality Comments ESOPHAGOGASTRODUODENOSCOPY 2012 PROCEDURE: [place] ESOPHAGOGASTRODUODENOSCOPY TRANSORAL DIAGNOSTIC; COMMENT: normal COLONOSCOPY 09/05/2015 [...] AM EDT Narrative 09/23/2022 7:44 PM EDT [facility] Diagnostic Imaging Department [address] [place] [address] Patient: DARRYL GOODWIN JR /Age/Sex: 1965 - 57 - M Unit#: [id number] Location/Status: SPDICATLS/REG CLI Mnemonic/Ordering Site: [facility] Ordering Physician: YUNG LOPEZ MD CT Lung Screening Low Dose - 09/18/22 - PROCEDURE: Chest CT INDICATION: Former smoker, lung cancer screening, 60 pack year smoking history TECHNIQUE: Chest CT without contrast. Multi planar reformats were created and interpreted. The examination was performed utilizing dose reduction techniques. Total DLP 154 COMPARISON: 09/15/2021 FINDINGS: LUNGS/PLEURA: Central airways are patent. No new or suspicious pulmonary nodules. No pleural effusion or pneumothorax. Linear atelectasis/scarring seen at the lung bases. MEDIASTINUM: Thyroid gland is unremarkable. No mediastinal or hilar lymphadenopathy. Cardiac chambers are normal in size. No pericardial effusion. Esophagus is normal. CHEST WALL: No axillary lymphadenopathy or superficial hematoma. Right chest wall vagal nerve stimulator noted. UPPER ABDOMEN:Hepatic steatosis. BONES: Bones are normal for age. IMPRESSION: No new or suspicious pulmonary nodules. Lung RADS 1-negative. Recommend continued screening with low-dose chest CT in 12 months. Dictating Physician: BERNICE VASQUES MD Electronically Signed by: BERNICE VASQUES MD Dic Date/Time: 09/23/221934 Sign date/Time: 09/23/221943 Procedure Note Bernice Vasques MD - 06/17/2023 [facility] Diagnostic Imaging Department [address] [place], [place] [id number] Patient: DARRYL GOODWIN JR Kobe /Age/Sex: 1965 - 57 - M Unit#: [id number] Location/Status: SPDICATLS/REG CLI Mnemonic/Ordering Site: [facility] Ordering Physician: YUNG LOPEZ MD CT Lung [...] MD IMG CT PROCEDURES Final Result * Colonoscopy (09/05/2015) Colonoscopy normal, abstracted Anatomical Region Laterality Modality Other Historical Provider HEALTH MAINTENANCE Final Result * Hepatitis C Screening (05/20/2015) Hepatitis C Screening abstracted us Historical Provider HEALTH MAINTENANCE Final Result from Last 3 Months or Most Recently Relevant to Health Maintenance Insurance MEDICAID Care Teams Voice Over Announcer Relationship Specialty Start Date End Date Irvin Johnson MD [address] [place] [address] PCP - General Internal Medicine 12/28/21
== END 2024-11-02 11:01 | disposition home or self-care (01) ==
LOC: HO.HPS 10:44
PROVIDERS: PCP Internal Medicine; Referring Provider Internal Medicine; Visit Provider Physician Assistant Medical
DX: Z87.891 Personal history of nicotine dependence (principal)
CPT/HCPCS: G0296

== ENCOUNTER 2024-11-02 10:58 | Outpatient (REF) | payer OTHER, SELFPAY ==
--- NOTE | ~2024-11-02 | CT_ITS ---
EXAMINATION: CT LOW-DOSE SCREENING CHEST WITHOUT CONTRAST CLINICAL INFORMATION: 59-year-old male, current smoker, 34 pack years. Lung cancer screening. COMPARISON: No prior. TECHNIQUE: Multidetector volumetric CT imaging of the chest is performed on a Siemens SOMATOM Definition scanner without contrast using low dose technique. Additional 2D coronal and sagittal reformatted images and axial 3D maximum intensity projection (MIP) images are generated on the CT workstation. This CT examination was performed using dose optimization techniques as appropriate, variously including the following: *Automated exposure control *Adjustment of mA and/or kV according to patient size (this includes techniques or standardized protocols for targeted exams where dose is matched to indication/reason for exam; i.e. extremities or head) *Use of iterative reconstruction technique FINDINGS: PULMONARY NODULES: -There are a few scattered left lung 2 mm punctate calcified and noncalcified nodules. -There are no suspicious nodules. LUNGS: Mild centrilobular emphysema. Linear atelectasis or scarring in the medial inferior right upper lobe, as well as the lingula annual bilateral lower lobes. Lungs otherwise clear and well pneumatized. Mild diffuse small airway thickening in keeping with chronic colitis. Central airways appear patent. MEDIASTINUM: Normal thyroid. No adenopathy. No mass. Aorta is normal in caliber and course. Main pulmonary artery is normal in size. Heart size is normal. No pericardial effusion. No esophageal abnormality. CORONARY ARTERY CALCIFICATION: None visualized on this study. CHEST WALL/AXILLA: There is a vagal nerve stimulator device in the right chest wall extending into the right neck. No adenopathy or mass. UPPER ABDOMEN: Included portions of the solid organs in the upper abdomen unremarkable on noncontrast imaging. OSSEOUS STRUCTURES: No lytic or blastic bone lesions. CT/CT lung screening IMPRESSION: 1. There are a few tiny 2 mm calcified and noncalcified left lung nodules. These are statistically benign. There are no suspicious lung nodules. 2. There is mild centrilobular emphysema. There is no active lung disease. 3. Additional ancillary findings as discussed in the body of the report. ASSESSMENT: 1. Lung-RADS Category 2: Benign appearance or behavior of nodules. 2. Lung-RADS Category S: None. RECOMMENDATION: Continued routine annual low-dose CT lung screening in 1 year is recommended. An order for CT CHEST LOW DOSE CANCER SCREENING ([id number]) can be placed. Electronically signed by: Deo Liu MD 11/02/2024 11:49 AM EDT RP
== END 2024-11-02 10:59 | disposition home or self-care (01) ==
LOC: HO.CT 10:58
PROVIDERS: PCP Internal Medicine; Visit Provider Physician Assistant Medical
DX: Z12.2 Encounter for screening for malignant neoplasm of respiratory organs (principal); Z87.891 Personal history of nicotine dependence
CPT/HCPCS: 71271

== ENCOUNTER → 2024-11-02 11:00 | Outpatient (BNV) | payer OTHER, SELFPAY | PROVIDERS: PCP Internal Medicine; Visit Provider Radiology Diagnostic Radiology | DX: F17.210 Nicotine dependence, cigarettes, uncomplicated (principal) | CPT/HCPCS: 71271 ==

== ENCOUNTER 2024-12-27 13:29 | Outpatient (AMB) | payer OTHER, SELFPAY ==
[2024-12-27 14:08] VITALS: BP 120/60; PULSE 73; TEMP 36.3; O2SAT 98; BMI 28.3
--- NOTE | 2024-12-27 14:08 | MHC.PC.OV ---
Vital Signs 12/27/24 14:08 Height 5 ft 6.34 in Weight 177 lb 2 oz BMI 28.3 BP 120/60 Blood Pressure Location Lt brachial Position Sitting Pulse 73 Pulse Source Pulse Oximeter Temp 97.3 F Temp Source Temporal Artery Scan Pulse Oximetry (%) 98 Oxygen Delivery Method Room Air Intake Visit Reasons: pe Intake Note: Patient is here today for a physical. Software Project Lead Required: No Interior Design Faculty Member: Not Required per policy Accompanied by: Self / Same As Patient Allergies No Known Allergies (No Known Allergies*) Allergy (Verified 12/27/24 14:08) Medication List - Last Reconciled 12/27/24 by Seda Alarcon MD albuterol sulfate 90 mcg/actuation 2 puffs inhalation Q4-6H PRN apple cider vinegar 250 mg PO DAILY ascorbic acid (vitamin C) 1 g PO DAILY aspirin 81 mg PO DAILY bisacodyl 5 mg PO ONCE 1 day cholecalciferol (vitamin D3) 50 mcg PO DAILY vvdpcfkx-qmq-vhhft-vit K-lycop 400-20-370 mcg (Men's 50 Plus Multivitamin) 1 tab PO DAILY omeprazole magnesium (Prilosec OTC) 20 mg PO DAILY polyethylene glycol 3350 (Miralax) 238 grams PO ONCE semaglutide 1.7 mg subcut .Q week Tobacco use date assessed: 12/27/24 Dental Screening Dental Screen Date: 08/23/24 [facility] Medical History (Updated 12/27/24 @ 15:23 by Seda Alarcon MD) Sleep apnea GERD (gastroesophageal reflux disease) Asthma Constipation Personal history of nicotine dependence Bochdalek hernia Surgical History History of surgery Hx of colonoscopy History of esophagogastroduodenoscopy (EGD) History of meniscectomy of right knee History of meniscectomy of left knee Family History Maternal Grandfather Pancreatic cancer Social History (Updated 12/27/24 @ 15:18 by Seda Alarcon MD) Housing: House Alcohol intake: current Alcohol intake frequency: a few times a month Comment: one a week 1 beer Patient Tobacco Use Status: Current everyday Tobacco user Tobacco use type: Cigar Cigarettes Per Day: 1 Years Smoked: (onset 15yo, 1ppd x 29yrs, quit cigs 2009, smokes cigars 4/wk- 25+PYH) e-Cigarette/Vaping Use: Never Used Second Hand Smoke Exposure: Yes service: No Current occupational status: employed Cognitive needs: No Hearing needs: No Vision needs: Yes (Glasses) Questionnaire Thrive Questionnaire Date Thrive assessed: 08/21/24 I am a: Patient What is your living situation today?: I have a steady place to live Within the past 12 months, did the food you bought not last and you didn't have the money to get more?: Never true Within the past 12 months, did you worry whether your food would run out before you got money to buy more?: Never true Do you have trouble paying for medicines?: No Do you have trouble getting transportation to medical appointments?: No Do you have trouble paying your heating and electricity bill?: No Do you have trouble taking care of your child, family member or friend?: No Do you have trouble with day-to-day activities such as bathing, preparing meals, shopping, managing finances, etc.?: No Are you currently unemployed and looking for a job?: No Are you interested in more education?: No Please select the resources that you would like help with: None Currently or been in a relationship where the following occur: No concerns reported THRIVE Score: 0 HAILY-7 AMB Questionnaire HAILY-7 Date HAILY - 7 assessed: 08/23/24 Source: Developed by Drs. Cornelio Roe, Jaimie Cody, Phu Ontiveros and colleagues, with an educational blanca from [employer]. Review of Systems Const Denies poor appetite and Denies weakness Eyes Denies no additional complaints ENT Reports Normal hearing present, Denies dizziness, Denies nasal congestion, Denies tinnitus and Denies sore throat Card Denies chest pain, Denies syncope, Denies rapid heart rate and Denies dyspnea Resp Denies cough and Denies dyspnea GI Denies change in stool character, Reports constipation, Denies diarrhea, Denies nausea and Denies vomiting Denies dysuria and Denies urinary frequency Neuro Reports Normal hearing present, Denies confusion, Denies dizziness, Denies syncope and Denies weakness Psych Denies confusion Physical exam (Primary Care) Vital Signs: Last Vital Signs Temp 97.3 F 12/27/24 14:08 Pulse 73 12/27/24 14:08 BP 120/60 12/27/24 14:08 Pulse Ox 98 12/27/24 14:08 Oxygen Delivery Method Room Air 12/27/24 14:08 BMI result Body Mass Index 28.3 Tobacco/Smoking Status: Tobacco use Status Tobacco use date assessed 12/27/24 12/27/24 14:13 Patient Tobacco Use Status Current everyday Tobacco 12/27/24 15:18 Tobacco use type Cigar 12/27/24 15:18 e-Cigarette/Vaping Use Never Used 12/27/24 15:18 Thrive Assessment: Date of Thrive Assessment Date Thrive assessed 08/21/24 12/27/24 14:13 Currently or been in a relationship where the following occur: No concerns reported Const General: No confusion Orientation/consciousness: No confusion HENMT Head: Yes normocephalic Ears: external ears normal and TM's normal bilaterally Face and sinus: Yes normal facial exam Mouth: moist mucous membranes Throat: Yes tonsils normal Eyes Conjunctivae: conjunctivae normal Pupils: Equal, round and reactive pupils present and Pupil accommodation reflex normal Direct Ophthalmoscopy: normal light reflex Neck Neck: No lymphadenopathy Thyroid: Thyroid normal Chest Chest palpation & inspection: normal inspection of the chest Resp Effort & Inspection: normal respiratory effort and no audible wheezes Auscultation: clear to auscultation bilaterally, no crackles, no wheezes and lung sounds not diminished Cardio Rate: regular rate Rhythm: regular rhythm Peripheral pulses: radial pulses present and dorsalis pedis present GI Palpation (GI): no masses Auscultation: normal bowel sounds and normoactive bowel sounds Rectal Exam - Male: Yes deferred Skin General skin exam: no rashes or lesions noted Rashes: no rashes Neuro General: No confusion Cranial nerves: Yes Equal, round and reactive pupils present and Yes Normal hearing present Cognition (Neuro): normal cognition Gait exam (Neuro): Normal gait present Motor exam (neuro): 5/5 motor strength present throughout Deep tendon reflexes (DTR's): Right brachioradialis reflex intensity grade: 2+, Left brachioradialis reflex intensity grade: 2+, Right patellar reflex intensity grade: 2+ and Left patellar reflex intensity grade: 2+ Extrem General: No edema Coding Level of Care Code Est Pt Prev Care 40-64y(37269) Diagnoses Annual physical exam Z00.00 Colon cancer screening Z12.11 Gastroesophageal reflux disease, unspecified whether esophagitis present K21.9 Esophagitis presence: esophagitis presence not specified Asthma J45.909 CHELLE (obstructive sleep apnea) G47.33 Personal history of nicotine dependence Z87.891 Overweight (BMI 25.0-29.9) E66.3 Vitamin B12 deficiency E53.8 Assessment & Plan Assessment & Plan (1) Annual physical exam: Code(s): Z00.00 - Encounter for general adult medical examination without abnormal findings Category: Medical Plan: Patient is advised to eat healthy, keep well hydrated, keep active and have adequate sleep. (2) Colon cancer screening: Code(s): Z12.11 - Encounter for screening for malignant neoplasm of colon Category: Medical Plan: Patient has a scheduled colonoscopy tomorrow (3) GERD (gastroesophageal reflux disease): Code(s): K21.9 - Gastro-esophageal reflux disease without esophagitis Category: Medical Qualifiers: Esophagitis presence: esophagitis presence not specified Qualified Code(s): K21.9 - Gastro-esophageal reflux disease without esophagitis Plan: Avoid the foods that causes that usually spicy foods, tomato products, juices, coffee, soda and foods that your sensitive to. After eating do not lie down, allow 3-4 hours before in lie down. And keep the head of bed above 30 degrees to avoid the acid from going up. (4) Asthma: Code(s): J45.909 - Unspecified asthma, uncomplicated Category: Medical Plan: Continue with albuterol inhaler as needed (5) CHELLE (obstructive sleep apnea): Comment: Inspire - implant in right chest Code(s): G47.33 - Obstructive sleep apnea (adult) (pediatric) Category: Medical Plan: Continue with the inspire for the CHELLE (6) Personal history of nicotine dependence: Comment: onset 15yo, 1ppd x 29yrs, quit cigarettes 2009, smokes cigars - 25+PYH) CT scan October 2024 Code(s): Z87.891 - Personal history of nicotine dependence Category: Medical Plan: CT scan October 2024 (7) Overweight (BMI 25.0-29.9): Code(s): E66.3 - Overweight Category: Medical Plan: Diet and exercise (8) Vitamin B12 deficiency: Code(s): E53.8 - Deficiency of other specified B group vitamins Category: Medical Plan History of Present Illness The patient is a 59-year-old male presenting for an annual physical examination and wellness plan. The patient has a history of Gastroesophageal Reflux Disease (GERD), asthma, and obstructive sleep apnea. He continues to use an albuterol inhaler as needed for asthma management and utilizes a CPAP device for sleep apnea. In October 2024, a CT scan of the chest revealed a few tiny 2 mm calcified and uncalcified nodules in the left lung, which were statistically benign, and mild emphysema. The patient is part of a lung cancer screening program and has seen a medical translator for this purpose. The patient has a history of being overweight and has a history of smoking, which may contribute to his respiratory conditions. He has a vagal nerve stimulator device implanted in the right chest wall. Blood work from August 2024 showed normal blood count, electrolytes, renal function, blood sugar, and thyroid levels. Cholesterol levels were good with an LDL of 85, but vitamin B12 was low at 225. The patient is scheduled for a gastroenterology appointment on December 28 and has a colonoscopy scheduled for tomorrow. Health Maintenance - Scheduled colonoscopy for colorectal cancer screening - Scheduled gastroenterology appointment on December 28 - Part of lung cancer screening program Social History - History of smoking - Overweight Review of Systems - Respiratory: Reports asthma, obstructive sleep apnea, and mild emphysema. Physical Exam General: Cooperative, healthy appearing, comfortable, no acute distress and well developed Orientation: Patient oriented x3 Limitations: No limitations Head: Normal to inspection Ears: Hearing grossly normal bilaterally Nose: Normal external nose present Face and sinus: Normal facial exam Eyes: Appearance normal, both eyes and all related structures Neck: Normal visual inspection and Yes full ROM Respiratory: Heavy inspiration on the right chest, normal respiratory effort and able to speak in complete sentences. Clear to auscultation bilaterally Cardiovascular: Regular rate and rhythm. Normal S1 and S2 GI: Normal to inspection. Soft to palpation and nontender Skin: No rashes or lesions noted Neuro: Patient oriented x3 Extremities: Normal to inspection Results - CT scan (October 2024): Few tiny 2 mm calcified and uncalcified nodules in the left lung, statistically benign, mild emphysema. - Blood work (August 2024): Normal blood count, electrolytes, renal function, blood sugar, thyroid levels; LDL 85, vitamin B12 low at 225. Plan The patient will continue using the albuterol inhaler as needed for asthma management and the CPAP device for obstructive sleep apnea. A follow-up with gastroenterology is scheduled for December 28 to address GERD management and any further gastrointestinal concerns. The patient is advised to proceed with the scheduled colonoscopy to ensure colorectal health and screening. Continued participation in the lung cancer screening program is recommended due to the presence of lung nodules and history of smoking. Diet and exercise modifications are encouraged to address overweight status and improve overall health. Patient was informed and verbally consented to the use of an ambient scribe for clinic note documentation during this visit. Discussion Notes Patient Instructions - Continue using albuterol inhaler as needed for asthma. - Use CPAP device consistently for sleep apnea. - Attend gastroenterology appointment on December 28. - Complete scheduled colonoscopy for colorectal screening. - Maintain participation in lung cancer screening program. - Implement diet and exercise changes to manage weight. Orders: Orders Vitamin B12 and Folate Today E53.8 - Deficiency of other specified B group vitamins Intrinsic Factor Antibodies Today E53.8 - Deficiency of other specified B group vitamins Parietal Cell Antibody Today E53.8 - Deficiency of other specified B group vitamins
--- OUTSIDE RECORDS SUMMARY | 2024-12-27 14:21 | XMS_ITS | Clinical Summary ---
Author Organization [facility] Address [address] [place] [phone] Phone Care Team Providers Care Principal Technical Architect Name Role Phone Irvin Johnson MD Primary Care Provider [phone] Allergies No known active allergies Medications albuterol [...] 2 Obstructive sleep apnea 02/09/2017 Overview (05/03/2024): [facility] Home Polysomnogram: Date 02/03/2017; AHI 5, Unclassified apneas 0; Obstructive apneas 2; Central apneas 0; Mixed apneas 0; hypopneas 19; average oxygen saturation 93% (lowest 79% without saturations <88% for 5% or more of study) [facility] Polysomnogram treatment study. Date 04/27/2017 . SE 86 % SM 90 %; spent 16 % of the study in REM. At the optimal pressure of CPAP @ 9; RDI 0.2 (AHI 0.2), Central apneas 0; Obstructive apneas 0; Mixed apneas 0; hypopneas 1; RERAs 0; and, average oxygen saturation was 95%. For the entire study, PLMs ~38. [facility] diagnostic polysomnogram 06/04/2021. Weight 201; BMI 33. AHI 15; REM AHI 26. 86 hypopneas; no apneas. Average oxygen saturation 92% with oxygen sharon 78%. Time with saturations less than 89% was 11.6 minutes. PLM's at 16. Obstructive sleep apnea-moderate with all hypopneas; without nocturnal hypoxemia but with PLMD per 2021 polysomnogram. COPD (chronic obstructive pu lmonary disease) ([facility] V24, [facility] V28) 10/29/2016 Chronic RUQ pain 12/15/2012 Overview (05/03/2024): Onset approx 1970's. Normal CT, US, EGD 2012. Improved with 30 lb weight loss as of 09/05/2015. Asthma 09/05/2012 Hyperlipidemia 01/09/2010 Immunizations Name Administration Dates Next Due Influenza [...] Surgery Date Site/Laterality Comments ESOPHAGOGASTRODUODENOSCOPY 2012 PROCEDURE: [place] ESOPHAGOGASTRODUODENOSCOPY TRANSORAL DIAGNOSTIC; COMMENT: normal COLONOSCOPY 09/05/2015 [...] PM EDT Personal history of nicotine dependence COLONOSCOPY Routine 09/05/2015 HEPATITIS C SCREENING Routine [...] AM EDT Narrative 09/23/2022 7:44 PM EDT [facility] Diagnostic Imaging Department [address] [place] [address] Patient: DARRYL GOODWIN JR./Age/Sex: 1965 - 57 - M Unit#: [id number] Location/Status: SPDICATLS/REG CLI Mnemonic/Ordering Site: [facility] Ordering Physician: YUNG LOPEZ MD CT [...] Procedure Note Bernice Vasques MD - 06/17/2023 [facility] Diagnostic Imaging Department [address] [place] [id number] Patient: BUDDY DUMONTDARRYL/Age/Sex: 1965 - 57 - M Unit#: [id number] Location/Status: SPDICATLS/REG CLI Mnemonic/Ordering Site: [facility] Ordering Physician: YUNG LOPEZ MD CT Lung [...] CT PROCEDURES Final Result * Colonoscopy (09/05/2015) [facility] Colonoscopy normal, abstracted Anatomical Region Laterality Modality Other Historical [facility] Final Result * Hepatitis C Screening (05/20/2015) [facility] Hepatitis C Screening abstracted Historical [facility] Final Result from Last 3 Months or Most Recently Relevant to Health Maintenance Insurance [facility] MEDICAID Care Teams Principal Technical Architect Relationship Specialty Start Date End Date Irvin Johnson MD [address] [place] [address] PCP - General Internal Medicine 12/28/21
== END 2024-12-27 15:36 | disposition home or self-care (01) ==
LOC: HO.HMCH 13:30
PROVIDERS: PCP Internal Medicine; Visit Provider Internal Medicine
DX: Z00.00 Encounter for general adult medical examination without abnormal findings (principal); Z12.11 Encounter for screening for malignant neoplasm of colon; K21.9 Gastro-esophageal reflux disease without esophagitis; J45.909 Unspecified asthma, uncomplicated; G47.33 Obstructive sleep apnea (adult) (pediatric); Z87.891 Personal history of nicotine dependence; E66.3 Overweight; E53.8 Deficiency of other specified B group vitamins

== ENCOUNTER 2024-12-28 08:20 | Day surgery (SDC) | payer OTHER, SELFPAY ==
--- OUTSIDE RECORDS SUMMARY | 2024-12-06 07:19 | XMS_ITS | Clinical Summary ---
Author Organization [facility] Address [address] [place] [id number] Phone Care Team Providers Care Boat Officer Name Role Phone Irvin Johnson MD Primary Care Provider [phone] Allergies No known active allergies Medications albuterol [...] 2 Obstructive sleep apnea 02/09/2017 Overview (05/03/2024): [facility] Home Polysomnogram: Date 02/03/2017; AHI 5, Unclassified apneas 0; Obstructive apneas 2; Central apneas 0; Mixed apneas 0; hypopneas 19; average oxygen saturation 93% (lowest 79% without saturations <88% for 5% or more of study) [facility] Polysomnogram treatment study. Date 04/27/2017 . SE 86 % SM 90 %; spent 16 % of the study in REM. At the optimal pressure of CPAP @ 9; RDI 0.2 (AHI 0.2), Central apneas 0; Obstructive apneas 0; Mixed apneas 0; hypopneas 1; RERAs 0; and, average oxygen saturation was 95%. For the entire study, PLMs ~38. [facility] diagnostic polysomnogram 06/04/2021. Weight 201; BMI 33. AHI 15; REM AHI 26. 86 hypopneas; no apneas. Average oxygen saturation 92% with oxygen sharon 78%. Time with saturations less than 89% was 11.6 minutes. PLM's at 16. Obstructive sleep apnea-moderate with all hypopneas; without nocturnal hypoxemia but with PLMD per 2021 polysomnogram. COPD (chronic obstructive pu lmonary disease) ([facility] V24, [facility] V28) 10/29/2016 Chronic RUQ pain 12/15/2012 Overview (05/03/2024): Onset approx 1970's. Normal CT, US, EGD 2012. Improved with 30 lb weight loss as of 09/05/2015. Asthma 09/05/2012 Hyperlipidemia 01/09/2010 Encounters Date Type Department Care Team Description 09/21/2024 Telephone Lung Screening Program - [address] [id number] Lali Cody MA Appointment (1st [...] Surgery Date Site/Laterality Comments ESOPHAGOGASTRODUODENOSCOPY 2012 PROCEDURE: AR ESOPHAGOGASTRODUODENOSCOPY TRANSORAL DIAGNOSTIC; COMMENT: normal COLONOSCOPY 09/05/2015 [...] (2 of 2 - PCV) 06/09/2017 06/09/2016 HIV Screening 04/23/2022 Social Influencers of Health Screening 04/23/2022 COVID-19 Vaccine (4 - 2023-2 5 season) 2024 03/20/2021, 06/27/2020, 05/29/2020 Depression Screening 05/16/2024 Lung Cancer Screening (Low Dose CT) 10/07/2024 10/08/2023, 09/23/2022, 09/15/2021 Influenza Vaccine (#1) 2025 , 02/24/2011 Colorectal Cancer Screening: Colonoscopy 09/04/2025 09/05/2015 [...] us Historical Provider LAB BLOOD ORDERABLES Tiana l Result * CT LUNG SCREENING LOW DOSE (09/23/2022 7:44 PM EDT) Anatomical Region Laterality Modality Computed Tomogra phy 09/18/2022 7:22 AM EDT Narrative 09/23/2022 7:44 PM EDT [facility] Diagnostic Imaging Department [address] [place] [id number] Patient: DARRYL GOODWIN JR./Age/Sex: 1965 - 57 - M Unit#: [id number] Location/Status: SPDICATLS/REG CLI Mnemonic/Ordering Site: [facility] Ordering Physician: YUNG LOPEZ MD CT Lung [...] Procedure Note Bernice Vasques MD - 06/17/2023 [facility] Diagnostic Imaging Department [address] [place] [id number] Patient: DARRYL GOODWIN JR/Age/Sex: 1965 - 57 - M Unit#: [id number] Location/Status: SPDICATLS/REG CLI Mnemonic/[facility] Ordering Physician: YUNG LOPEZ MD CT Lung [...] CT PROCEDURES Final Result * Colonoscopy (09/05/2015) Pathologist [facility] Colonoscopy normal, abstracted Anatomical Region Laterality Modality Other Historical Jose A [facility] Final Result * Hepatitis C Screening (05/20/2015) Pathologist [facility] Hepatitis C Screening abstracted Danae Naranjo MD HEALTH MAINTENANCE Final Result from Last 3 Months or Most Recently Relevant to Health Maintenance Insurance [address] [address] [address] MEDICAID Care Teams Boat Officer Relationship Specialty Start Date End Date Irvin Johnson MD [address] [place] [address] PCP - General Internal Medicine 12/28/21
[2024-12-25 15:02] VITALS: BMI 28.2
--- NOTE | 2024-12-27 08:37 | HO.ANESPROP2 ---
Documented by User: Juany Hernandez NP 12/27/24 08:38 HPI - Anesthesia Eval Consult details Narrative: 59yo M for Upper Endoscopy and Colonoscopy Anesthesia Pre-Procedure Meds Is the patient on any of the following meds?: GLP1/DPP4 PMFSH Active Problems Active Problems: All Active Problems Colon cancer screening (Acute) CHELLE (obstructive sleep apnea) (Acute) Asthma (Acute) GERD (gastroesophageal reflux disease) (Acute) Overweight (BMI 25.0-29.9) (Acute) Constipation (Acute) Personal history of nicotine dependence (Acute) Past Medical History Medical History Sleep apnea GERD (gastroesophageal reflux disease) Asthma Constipation Personal history of nicotine dependence Bochdalek hernia Family History Family History Maternal Grandfather Pancreatic cancer Surgical History Surgical History History of surgery Hx of colonoscopy History of esophagogastroduodenoscopy (EGD) History of meniscectomy of right knee History of meniscectomy of left knee Social History Social History Housing: House Alcohol intake: current Alcohol intake frequency: a few times a month Comment: one a week 1 beer Patient Tobacco Use Status: Never used Tobacco Tobacco use type: Cigar Cigarettes Per Day: 1 Years Smoked: (onset 15yo, 1ppd x 29yrs, quit cigs 2009, smokes cigars 4/wk- 25+PYH) e-Cigarette/Vaping Use: Never Used Second Hand Smoke Exposure: Yes Use of substances other than those prescribed or required for medical reasons: No Advance Directives: No Advance Directives Information Provided: Yes service: No Current occupational status: employed Cognitive needs: No Hearing needs: No Vision needs: Yes (Glasses) Meds Allergies Allergy/AdvReac Type Severity Reaction Status Date / Time No Known Allergies (No Known Allergy Verified 12/27/24 14:08 Allergies*) Home Medications ?Medication ?Instructions ?Recorded ?Confirmed ?Last Taken ?Type apple cider vinegar 250 mg 250 mg PO DAILY 08/23/24 12/27/24 Unknown History chewable tablet ascorbic acid (vitamin C) 1,000 mg 1 g PO DAILY 08/23/24 12/27/24 Unknown History capsule aspirin 81 mg tablet 81 mg PO DAILY 08/23/24 12/27/24 Unknown History cholecalciferol (vitamin D3) 50 50 mcg PO DAILY 08/23/24 12/27/24 Unknown History mcg (2,000 unit) tablet xfdrzqyzccgq-jek-uadwn acid-vit 1 tab PO DAILY 08/23/24 12/27/24 Unknown History K-lycop 400 mcg-20 mcg-370 mcg tablet (Men's 50 Plus Multivitamin) omeprazole magnesium 20 mg 20 mg PO DAILY 08/23/24 12/27/24 Unknown History tablet,delayed release (Prilosec OTC) semaglutide 1.7 mg/0.22 mL 1.7 mg subcut .Q week 08/23/24 12/28/24 12/15/24 08:00 History subcutaneous syringe Exam Height,Weight and Vital Signs: Height 5 ft 6.34 in Weight 80 kg Assessment and Plan Assessment Anesthesia Assessment: Chart Reviewed Documented by User: Arturo Dahl MD 12/28/24 09:05 HPI - Anesthesia Eval Anesthesia Pre-Procedure Meds If yes to any meds - educate patient: Pt education - increased risk of aspiration and/or euvolemic DKA [facility] Past Medical History Medical History Sleep apnea GERD (gastroesophageal reflux disease) Asthma Constipation Personal history of nicotine dependence Bochdalek hernia Functional capacity: independent ambulation Family History Family History Maternal Grandfather Pancreatic cancer Family history of problems with anesthesia: No Surgical History Surgical History History of surgery Hx of colonoscopy History of esophagogastroduodenoscopy (EGD) History of meniscectomy of right knee History of meniscectomy of left knee History of Problems with Anesthesia: No Social History Social History Housing: House Alcohol intake: current Alcohol intake frequency: a few times a month Comment: one a week 1 beer Patient Tobacco Use Status: Never used Tobacco Tobacco use type: Cigar Cigarettes Per Day: 1 Years Smoked: (onset 15yo, 1ppd x 29yrs, quit cigs 2009, smokes cigars 4/wk- 25+PYH) e-Cigarette/Vaping Use: Never Used Second Hand Smoke Exposure: Yes Use of substances other than those prescribed or required for medical reasons: No Advance Directives: No Advance Directives Information Provided: Yes service: No Current occupational status: employed Cognitive needs: No Hearing needs: No Vision needs: Yes (Glasses) Meds Allergies Allergy/AdvReac Type Severity Reaction Status Date / Time No Known Allergies (No Known Allergy Verified 12/27/24 14:08 Allergies*) Home Medications ?Medication ?Instructions ?Recorded ?Confirmed ?Last Taken ?Type apple cider vinegar 250 mg 250 mg PO DAILY 08/23/24 12/27/24 Unknown History chewable tablet ascorbic acid (vitamin C) 1,000 mg 1 g PO DAILY 08/23/24 12/27/24 Unknown History capsule aspirin 81 mg tablet 81 mg PO DAILY 08/23/24 12/27/24 Unknown History cholecalciferol (vitamin D3) 50 50 mcg PO DAILY 08/23/24 12/27/24 Unknown History mcg (2,000 unit) tablet bzzlpdkfvldi-yay-xltkx acid-vit 1 tab PO DAILY 08/23/24 12/27/24 Unknown History K-lycop 400 mcg-20 mcg-370 mcg tablet (Men's 50 Plus Multivitamin) omeprazole magnesium 20 mg 20 mg PO DAILY 08/23/24 12/27/24 Unknown History tablet,delayed release (Prilosec OTC) semaglutide 1.7 mg/0.22 mL 1.7 mg subcut .Q week 08/23/24 12/28/24 12/15/24 08:00 History subcutaneous syringe Exam Exam Date and Time: 12/28/2024 Airway Mallampati Class: II TM Dist: >3cm Neck ROM: Full Loose/Missing/Broken Teeth: No Heart: rrr Lungs: cta Assessment and Plan Assessment Anesthesia Assessment: Anesthesia Plan Discussed and Smoking Cess. Discussed Final Anesthetic Review Family History of Problems with Anesthesia: No History of Problems with Anesthesia: No NPO: Yes ASA Class: II Final Preanesthetic Review: No Changes in Pt Med Stat, Meds/Allgs Chart Reviewed, Consent Obtained/Reviewed and Anes Risks/Benef Reviewed Patient Risk: Low Procedure Risk: Low Anesthetic Plan Anesthetic Plan: MAC: Disposition: Standard PACU
[2024-12-28 08:31] VITALS: BMI 27.3
[2024-12-28 08:45] VITALS: BP 105/73; PULSE 83; RESP 16; TEMP 36.6; O2SAT 97
[2024-12-28] MEDS: Lactated Ringers 1,000 ML 100 ML IVCONT (08:47)
--- NOTE | 2024-12-28 09:11 | MHC.SHP ---
Pre-Procedural Eval Section A - 24 Hr Update-Section A only Date of Service: 12/28/24 Section B - Complete if H&P > 30 days Chief Complaint: screening, dysphagia Details of Present Illness: Medical History (Updated 10/18/24 @ 09:32 by Tammie Spain CNP) Constipation Personal history of nicotine dependence Bochdalek hernia Surgical History (Updated 10/18/24 @ 08:47 by BRETT Chong) Hx of colonoscopy History of esophagogastroduodenoscopy (EGD) History of meniscectomy of right knee History of meniscectomy of left knee Allergies: Allergies Allergy/AdvReac Type Severity Reaction Status Date / Time No Known Allergies (No Known Allergy Verified 12/27/24 14:08 Allergies*) Review of Systems Review of Systems Comment: Ten point ROS negative Exam Exam Comment: Gen appear: No acute distress HEENT: no icterus Chest: No overt resp distress Abd: soft, nontender, nondistended Psych: Stable affect, answering questions appropriately Neuro: A/Ox3 noted to move all extremities spontaneously Ext: no peripheral edema Plan Diagnosis/Plan: Unchanged I have reviewed the history and physical and performed a pertinent physical examination on my patient. No changes have occurred unless specified. Time Spent With Patient Time: Total time managing care of this patient today ____ minutes.
--- NOTE | 2024-12-28 10:49 | P.OPN-COLO_ITS ---
Colonoscopy Operative Note Operative Note Date of Service: 12/28/24 Narrative: Procedure: Upper endoscopy and colonoscopy Indication: Dysphagia, CRC screening Endoscopist: Park Palomino MD Anesthesia Provider: Dr Dahl Anesthesia type: MAC Instrument: GIF-H190 and [id number]-[id number] EGD Procedure:?? The procedure, indications, preparation and potential complications were reviewed with the patient, who indicated understanding and gave written informed consent to proceed. The endoscope was introduced through the mouth, and advanced to the 2nd part of the duodenum. The mucosa was carefully examined on slow withdrawal of the endoscope. The patient tolerated the procedure well. There were no immediate complications.? EGD Findings:? * Esophagus:? Prominent trachealization noted in the esophagus suspicious for underlying eosinophilic esophagitis. The Z-line was at 40 cm and irregular to 38 cm. Cold forceps biopsies were taken from GE junction to rule out Carter's esophagus. Cold forceps biopsies were also taken from middle and lower esophagus to rule out eosinophilic esophagitis. * Stomach:?Erythema and erosions in the body and antrum. Retroflexion was performed in the cardia. Random cold forceps biopsies were taken from the stomach. * Duodenum:? Small erosions noted in the 1st and 2nd portions of the duodenum. Cold forceps biopsies were taken for histology. Additional intervention: Soft tip Savary wire was introduced through the biopsy channel of the gastroscope and advanced to the antrum. ?The gastroscope was then backed out. ?Savary Reynaldo bougie was advanced over the guidewire and the esophagus was dilated from 16 to 17 mm without any resistance felt. ?On relook, heme and a small superficial tear was noted at GE junction. ? Colonoscopy Procedure:? The patient was then turned for the colonoscopy. A digital rectal exam was performed which was normal abnormal for external hemorrhoids.? A distal attachment cap was affixed to the tip of the scope and the colonoscope was then inserted through the anus and advanced through the colon and advanced to the cecum at 75 cm and terminal ileum.? Appendiceal orifice and ileocecal valve were identified. Mucosa was carefully examined under high definition white light as the instrument was slowly withdrawn in a retrograde panoramic fashion. Retroflexion was performed in ascending colon and rectum. The procedure was not difficult. The quality of the prep was BBPS: 2+2+2 = adequate Withdrawal time 13 minutes Limitations: No limitations Findings: Mucosa: Copious liquid stool was present throughout the colon, which was flushed and suctioned out.Normal colon and terminal ileum mucosa to the extent examined.. Protruding lesions: * One sessile polyp of size 2 mm noted in the sigmoid colon. Cold snare polypectomy was performed. The polyp was completely removed and retrieved. * Medium internal hemorrhoids without stigmata of recent bleeding. Impression: 1. Abnormal esophageal mucosa (biopsy) 2. GE junction stenosis (dilation) 3. Irregular Z-line r/o Carter's (biopsy) 4. Gastritis (biopsy) 5. Duodenitis (biopsy) 6. Fair prep 7. 1 polyp removed 8. Internal and external hemorrhoids Recommendations:?? * Follow-up path results * If eosinophilic esophagitis confirmed, will need topical steroid therapy * Continue omeprazole daily * Avoid NSAIDs * If H pylori positive, treatment will be prescribed * Repeat colonoscopy in 5 years due to quality of the prep
[2024-12-28 10:52] VITALS: BP 120/80; PULSE 75; RESP 16; TEMP 36.1; O2SAT 98
[2024-12-28 11:00] VITALS: BP 107/64; PULSE 84; RESP 16; O2SAT 98
[2024-12-28 11:15] VITALS: BP 100/69; PULSE 75; RESP 16; O2SAT 97
== END 2024-12-28 11:48 | disposition home or self-care (01) ==
PROVIDERS: PCP Internal Medicine; Visit Provider Internal Medicine
PROC: (CPT 45385; principal; 2024-12-28 10:00)
DX: Z12.11 Encounter for screening for malignant neoplasm of colon (principal); D12.5 Benign neoplasm of sigmoid colon; K64.8 Other hemorrhoids; K64.4 Residual hemorrhoidal skin tags; R13.10 Dysphagia, unspecified; K21.9 Gastro-esophageal reflux disease without esophagitis; K22.2 Esophageal obstruction; K22.9 Disease of esophagus, unspecified; K22.89 Other specified disease of esophagus; K29.60 Other gastritis without bleeding; K29.80 Duodenitis without bleeding; J45.909 Unspecified asthma, uncomplicated; G47.33 Obstructive sleep apnea (adult) (pediatric); E53.8 Deficiency of other specified B group vitamins; F17.200 Nicotine dependence, unspecified, uncomplicated; Z79.899 Other long term (current) drug therapy
CPT/HCPCS: 45385; 43248; 43239; 88305; 88313; 88342; C1769; J2003; J2704; J3010

== ENCOUNTER → 2024-12-28 08:20 | Outpatient (BNV) | payer OTHER, SELFPAY | PROVIDERS: PCP Internal Medicine; Visit Provider Internal Medicine | DX: Z12.11 Encounter for screening for malignant neoplasm of colon (principal); D12.5 Benign neoplasm of sigmoid colon; K64.8 Other hemorrhoids; R13.10 Dysphagia, unspecified; K22.89 Other specified disease of esophagus; K29.70 Gastritis, unspecified, without bleeding; K29.80 Duodenitis without bleeding; K22.2 Esophageal obstruction | CPT/HCPCS: 43239; 43248; 45385 ==

== ENCOUNTER 2025-01-11 14:33 | Outpatient (AMB) | payer OTHER, SELFPAY ==
--- OUTSIDE RECORDS SUMMARY | 2025-01-11 14:36 | XMS_ITS | Encounter Summary ---
Author Organization [facility] Address [address] [place] [address] Care Team Providers Care Security Shift Supervisor Name Role Phone Yolette Denny MD Primary Care Provider [phone] Yung Conner MD Unavailable Reason for Visit * Reason Onset Date Comments Tours Captain Feedback 02/17/2021 Pulmonology Encounter Details Date Type Department Care Team Description 02/17/2021 Telephone Adult Medicine [address] [phone] Evangelista Molina MD [address] [place] [address] Tours Captain Feedback (Pulmonology) Social History Tobacco Use Types Packs/Day Years Used Date Smoking Tobacco: Former Cigarettes 1 30 Q uit: 09/13/2012 Smokeless Tobacco: Former Quit: 05/16/1983 Comments:quit 3 years ago Alcohol Use Standard Drinks/Week Comments Yes 5 (1 standard drink = 0.6 oz pur e alcohol) 6 per week Sex Assigned at Date Recorded Male 08/24/2020 8:37 PM E DT documented as of this encounter Miscellaneous Notes * Telephone Encounter - Mere Giron - 02/17/2021 1:28 PM EDT Patient still has Dr. Molina as PCP I won't be able to pend a referral until PCP has changed. I called and LVM for pt to call me back. * Telephone Encounter - Hao Norton - 02/17/2021 12:24 PM EDT Michelle has been made aware that Dr. Evangelista Molina has retired. [facility]. What insurance does the patient have today? Payor: [employer] / Plan: PPO $20 ANDOVER [id number] / Product Type: PPO [id number] Effective 02/13/09: [employer] will not retro referral requests over 90 days. If request is for this please instruct patient to call the 800# on their insurance card to appeal. Do not submit a request. Referrals cannot be processed if the insurance is not accurate. If the insurance listed above in red is NO BILLING INFORMATION FOUND FOR THIS ENCOUTNER The patients correct insurance must be obtained and registered in [facility] or their referral can not be processed. Is this a retro request? NO. If yes for what date of service do you need the retro referral? N/A Who is calling to request this referral? [facility] If the caller is not the patient, what is their name? Michelle Ask the patient WHO referred them to this specialty: Not an initial visit; it is for follow up/continuation of care. Patients PCP is Dr. Evangelista Molina FIRST and LAST NAME of SPECIALIST PATIENT is seeing: (patient does not currently have an appointment scheduled) What specialty is this? Pulmonology DIAGNOSIS Patient is being seen for (Not a body part or a procedure): Sleep apnea, sleep study required, patient is trying to get sleep apnea implants through [facility] Have you seen this SPECIALIST for this PROBLEM/DX before?NO If YES, when: Have you checked REVIEW or the APPT DESK to see if this referral has already been done or has visits left? YES Is this visit:Initial Visit Address of Specialist:(patient does not currently have an appointment scheduled) Phone # of Specialist:(patient does not currently have an appointment scheduled) Fax #: (if applicable):(patient does not currently have an appointment scheduled) Does patient have an appointment scheduled?: NO Date of appointment- (including a retro-request): Is this appointment related to: Surgery documented in this encounter Plan of Treatment Not on file documented as of this encounter Visit Diagnoses Not on filedocumented in this encounter Care Teams Security Shift Supervisor Relationship Specialty Start Date End Date Yolette Denny MD [address] [place] [phone] PCP - General Internal Medicine 02/17/21 Yung Conner MD [address] [place] [address] Specialist Thoracic Surgery 12/22/23 documented as of this encounter
--- OUTSIDE RECORDS SUMMARY | 2025-01-11 14:36 | XMS_ITS | Encounter Summary ---
Author Organization [facility] Address [address] [place] [address] Care Team Providers Care Basket Filler Name Role Phone Kirby Graf MD Primary Care Provider Unavail able Evangelista Molina MD Primary Care Provider [phone] Yolette Denny MD Primary Care Provider [phone] Yung Conner MD Unavailable Encounter Details Date Type Department Care Team Description 03/15/2014 Hereditary Cancer Qu iz Results Medical Records [address] [place] [address] Abstract, Provider Social History Tobacco Use Types Packs/Day Years Used Date Smoking Tobacco: Former Cigarettes 0 30 Q uit: 09/13/2012 Smokeless Tobacco: Former Quit: 05/16/1983 Comments:quit 3 years ago Alcohol Use Standard Drinks/Week Comments Yes 0.8 (1 standard drink = 0.6 oz p ure alcohol) 12 beers per yr Sex Assigned at Date Recorded Male 08/24/2020 8:37 PM E DT documented as of this encounter Plan of Treatment Not on file documented as of this encounter Visit Diagnoses Not on filedocumented in this encounter Care Teams Basket Filler Relationship Specialty Start Date End Date Kirby Graf MD PCP - General Internal Medicine 03/12/14 05/18/15 Evangelista Molina MD [address] [place] [address] PCP - General Internal Medicine 05/19/15 02/16/21 Yolette Denny MD [address] [place] [address] PCP - General Internal Medicine 02/17/21 Yung Conner MD [address] [place] [address] Specialist Thoracic Surgery 12/22/23 documented as of this encounter
--- OUTSIDE RECORDS SUMMARY | 2025-01-11 14:36 | XMS_ITS | Encounter Summary ---
Author Organization [facility] Address [address] [place] [address] Care Team Providers Care Supervisor Compressed Yeast Name Role Phone Kirby Graf MD Primary Care Provider Unavail able Evangelista Molina MD Primary Care Provider Yolette Denny MD Primary Care Provider [phone] Yung Conner MD Unavailable Encounter Details Date Type Department Care Team Description 03/29/2014 Pt. Non Urgent Medic al Question Adult Medicine [address] [address] Kirby Graf MD Social History Tobacco Use Types Packs/Day Years Used Date Smoking Tobacco: Former Cigarettes 0 30 Q uit: 09/13/2012 Smokeless Tobacco: Former Quit: 05/16/1983 Comments:quit 3 years ago Alcohol Use Standard Drinks/Week Comments Yes 0.8 (1 standard drink = 0.6 oz p ure alcohol) 12 beers per yr Sex Assigned at Date Recorded Male 08/24/2020 8:37 PM E DT documented as of this encounter Progress Notes * Loreta Cox M.A. - 04/01/2014 8:33 AM ESTFrom: Kumar Thompson Jr To: Kirby Graf MD Sent: 03/29/2014 10:22 PM EST Subject: Flu Allset had shot already documented in this encounter Plan of Treatment Not on file documented as of this encounter Visit Diagnoses Not on filedocumented in this encounter Care Teams Supervisor Compressed Yeast Relationship Specialty Start Date End Date Kirby Graf MD PCP - General Internal Medicine 03/12/14 05/18/15 Evangelista Molina MD [address] [place] [address] PCP - General Internal Medicine 05/19/15 02/16/21 Yolette Denny MD [address] [place] [address] PCP - General Internal Medicine 02/17/21 Yung Conner MD [address] [place] [phone] Specialist Thoracic Surgery 12/22/23 documented as of this encounter
--- OUTSIDE RECORDS SUMMARY | 2025-01-11 14:36 | XMS_ITS | Encounter Summary ---
Author Organization [facility] Address [address] [place] [address] Care Team Providers Care Health Screener Name Role Phone Evangelista Molina MD Primary Care Provider [phone] Yolette Denny MD Primary Care Provider [phone] Yung Conner MD Unavailable Encounter Details Date Type Department Care Team Description 02/08/2017 Orders Only Medical Records [address] [place] [address] Nacho Velasquez PA-C [address] [place] [address] Social History Tobacco Use Types Packs/Day Years [...] on file documented as of this encounter Procedures Procedure Name Priority Date/Time Associated Diagnosis Comments OUTSIDE SLEEP STUDY Routine 02/03/2017 documented in this encounter Results * OUTSIDE SLEEP STUDY (02/03/2017) Nacho Velasquez PA-C PULMONOLOGY documented in this encounter Visit Diagnoses Not on filedocumented in this encounter Care Teams Health Screener Relationship Specialty Start Date End Date Evangelista Molina MD [address] [place] [address] PCP - General Internal Medicine 05/19/15 02/16/21 Yolette Denny MD [address] [place] [phone] PCP - General Internal Medicine 02/17/21 Yung Conner MD [address] [place] [address] Specialist Thoracic Surgery 12/22/23 documented as of this encounter
--- OUTSIDE RECORDS SUMMARY | 2025-01-11 14:36 | XMS_ITS | Encounter Summary ---
Author Organization [facility] Address [address] [place] [address] Care Team Providers Care Supervisor Aircraft Maintenance Name Role Phone Yolette Denny MD Primary Care Provider [phone] Yung Conner MD Unavailable Encounter Details Date Type Department Care Team Description 09/24/2022 Mold Bunch Trimmer Report Medical Records [address] [place] [address] [facility] [address] [place] [address] Social History Tobacco Use Types Packs/Day Years Used Date Smoking Tobacco: Former Cigarettes 1 30 Q uit: 09/13/2012 Smokeless Tobacco: Former Quit: 05/16/1983 Comments:quit 8 years ago Alcohol Use Standard Drinks/Week Comments Yes 5 (1 standard drink = 0.6 oz pur e alcohol) 6 or less per week Sex Assigned at Date Recorded Male 08/24/2020 8:37 PM E DT documented as of this encounter Plan of Treatment Not on file documented as of this encounter Visit Diagnoses Not on filedocumented in this encounter Care Teams Supervisor Aircraft Maintenance Relationship Specialty Start Date End Date Yolette Denny MD [address] [place] [phone] PCP - General Internal Medicine 02/17/21 Yung Conner MD [address] [place] [address] Specialist Thoracic Surgery 12/22/23 documented as of this encounter
--- OUTSIDE RECORDS SUMMARY | 2025-01-11 14:36 | XMS_ITS | Clinical Summary ---
Author Organization [facility] Address [address] [place] [phone] Phone Care Team Providers Care Industrial Psychology Professor Name Role Phone Irvin Johnson MD Primary Care Provider [phone] Allergies No known active allergies Medications albuterol [...] 2 Obstructive sleep apnea 02/09/2017 Overview (05/03/2024): [facility] Home Polysomnogram: Date 02/03/2017; AHI 5, Unclassified apneas 0; Obstructive apneas 2; Central apneas 0; Mixed apneas 0; hypopneas 19; average oxygen saturation 93% (lowest 79% without saturations <88% for 5% or more of study) [facility] Polysomnogram treatment study. Date 04/27/2017 . SE 86 % SM 90 %; spent 16 % of the study in REM. At the optimal pressure of CPAP @ 9; RDI 0.2 (AHI 0.2), Central apneas 0; Obstructive apneas 0; Mixed apneas 0; hypopneas 1; RERAs 0; and, average oxygen saturation was 95%. For the entire study, PLMs ~38. [facility] diagnostic polysomnogram 06/04/2021. Weight 201; BMI 33. AHI 15; REM AHI 26. 86 hypopneas; no apneas. Average oxygen saturation 92% with oxygen sharon 78%. Time with saturations less than 89% was 11.6 minutes. PLM's at 16. Obstructive sleep apnea-moderate with all hypopneas; without nocturnal hypoxemia but with PLMD per 2021 polysomnogram. COPD (chronic obstructive pu lmonary disease) ([facility] V24, [facility] V28) 10/29/2016 Chronic RUQ pain 12/15/2012 Overview [...] Surgery Date Site/Laterality Comments ESOPHAGOGASTRODUODENOSCOPY 2012 PROCEDURE: [place] ESOPHAGOGASTRODUODENOSCOPY TRANSORAL DIAGNOSTIC; COMMENT: normal COLONOSCOPY 09/05/2015 [...] EDT [facility] Diagnostic Imaging Department [address] [place] [address] Patient: DARRYL GOODWIN JR./Age/Sex: 1965 - 57 - M Unit#: [id number] Location/Status: SPDICATLS/REG CLI Mnemonic/Ordering Site: [facility] Ordering Physician: YUNG LOPEZ MD CT Lung [...] 06/17/2023 [facility] Diagnostic Imaging Department [address] [place] [address] Patient: BUDDY DUMONTDARRYL/Age/Sex: 1965 - 57 - M Unit#: [id number] Location/Status: SPDICATLS/REG CLI Mnemonic/Ordering Site: [facility] Ordering Physician: YUNG LOPEZ MD CT Lung [...] CT PROCEDURES Final Result * Colonoscopy (09/05/2015) [facility] Colonoscopy normal, abstracted Anatomical Region Laterality Modality Other Historical [facility] Final Result * Hepatitis C Screening (05/20/2015) [facility] Hepatitis C Screening abstracted Historical [facility] Final Result from Last 3 Months or Most Recently Relevant to Health Maintenance Insurance [facility] MEDICAID Care Teams Industrial Psychology Professor Relationship Specialty Start Date End Date Irvin Johnson MD [address] [place] [address] PCP - General Internal Medicine 12/28/21
--- OUTSIDE RECORDS SUMMARY | 2025-01-11 14:36 | XMS_ITS | Encounter Summary ---
Author Organization [facility] Address [address] [place] [address] Care Team Providers Care Director Government Name Role Phone Yolette Denny MD Primary Care Provider [phone] Yung Conner MD Unavailable Encounter Details Date Type Department Care Team Description 12/01/2022 Orders Only Medical Records [address] [place] [phone] Abstract, Provider Social History Tobacco Use Types [...] Associated Diagnosis Comments OUTSIDE SLEEP STUDY Routine 11/10/2022 documented in this encounter Results * OUTSIDE SLEEP STUDY (11/10/2022) Provider Abstract PULMONOLOGY documented in this encounter Visit Diagnoses Not on filedocumented in this encounter Care Teams Director Government Relationship Specialty Start Date End Date Yolette Denny MD [address] [place] [phone] PCP - General Internal Medicine 02/17/21 Yung Conner MD [address] [place] [address] Specialist Thoracic Surgery 12/22/23 documented as of this encounter
--- OUTSIDE RECORDS SUMMARY | 2025-01-11 14:36 | XMS_ITS | Encounter Summary ---
Author Organization [facility] Address [address] [place] [address] Care Team Providers Care Nipping Machine Operator Name Role Phone Yolette Denny MD Primary Care Provider Yung Conner MD Unavailable Encounter Details Date Type Department Care Team Description 08/29/2023 Orders Only [facility] Lung Screening Program [place] [address] [phone] Yung Conner MD [address] [phone] Former smoker (Primary Dx) Social History Tobacco Use Types Packs/Day Years [...] on file documented as of this encounter Results * CT LOW DOSE LUNG SCREEN ANNUAL (10/08/2023) Yung Conner MD CT SCANS documented in this encounter Visit Diagnoses Diagnosis Former smoker- Primary Personal history of tobacco use, presenting hazards to health documented in this encounter Care Teams Nipping Machine Operator Relationship Specialty Start Date End Date Yolette Denny MD [address] [place] [address] PCP - General Internal Medicine 02/17/21 Yung Conner MD [address] [place] [address] Specialist Thoracic Surgery 12/22/23 documented as of this encounter
--- OUTSIDE RECORDS SUMMARY | 2025-01-11 14:36 | XMS_ITS | Encounter Summary ---
Author Organization [facility] Address [address] [place] [address] Care Team Providers Care Tele Rn Name Role Phone Yolette Denny MD Primary Care Provider [phone] Yung Conner MD Unavailable Encounter Details Date Type Department Care Team Description 09/15/2021 Fisher Lampara Net Report Medical Records [address] [place] [address] Center[facility] [address] [place] [address] Social History Tobacco Use Types Packs/Day Years Used Date Smoking Tobacco: Former Cigarettes 1 30 Q uit: 09/13/2012 Smokeless Tobacco: Former Quit: 05/16/1983 Comments:quit 3 years ago Alcohol Use Standard Drinks/Week Comments Yes 5 (1 standard drink = 0.6 oz pur e alcohol) 6 per week Sex Assigned at Date Recorded Male 08/24/2020 8:37 PM E DT COVID-19 Exposure Response Date Recorded In the last 10 days, have yo u been in contact with someone who was confirmed or suspected to have Coronavirus/COVID-19? No / Unsure 09/15/2021 9:01 AM EDT documented as of this encounter Plan of Treatment Not on file documented as of this encounter Visit Diagnoses Not on filedocumented in this encounter Care Teams Tele Rn Relationship Specialty Start Date End Date Yolette Denny MD [address] [place] [phone] PCP - General Internal Medicine 02/17/21 Yung Conner MD [address] [place] [address] Specialist Thoracic Surgery 12/22/23 documented as of this encounter
--- OUTSIDE RECORDS SUMMARY | 2025-01-11 14:36 | XMS_ITS | Encounter Summary ---
Author Organization [facility] Address [address] [place] [address] Care Team Providers Care Fitness Instructor Name Role Phone Yolette Denny MD Primary Care Provider Yung Conner MD Unavailable Encounter Details Date Type Department Care Team Description 09/24/2022 Orders Only [facility] Lung Screening Program [place] [address] [phone] Yung Conner MD [address] [id number] History of tobacco abuse Social History Tobacco Use Types Packs/Day Years [...] Procedure Name Priority Date/Time Associated Diagnosis Comments CT LOW DOSE LUNG SCREEN ANNUAL Routine 09/18/2022 History of tobacco abuse documented in this encounter Results * CT LOW DOSE LUNG SCREEN ANNUAL (09/18/2022) Yung Conner MD CT SCANS documented in this encounter Visit Diagnoses Diagnosis History of tobacco abuse Personal history of tobacco use, presenting hazards to health documented in this encounter Care Teams Fitness Instructor Relationship Specialty Start Date End Date Yolette Denny MD [address] [place] [address] PCP - General Internal Medicine 02/17/21 Yung Conner MD [address] [place] [address] Specialist Thoracic Surgery 12/22/23 documented as of this encounter
--- OUTSIDE RECORDS SUMMARY | 2025-01-11 14:36 | XMS_ITS | Encounter Summary ---
Author Organization [facility] Address [address] [place] [address] Care Team Providers Care Industrial Hygienist Name Role Phone Yolette Denny MD Primary Care Provider [phone] Yung Conner MD Unavailable Encounter Details Date Type Department Care Team Description 07/06/2021 Apron Man Report Medical Records [address] [place] [id number] [place] [address] Orthopedic, Surgeons Social History Tobacco Use Types Packs/Day Years [...] Exposure Response Date Recorded In the last month, have you been in contact with someone who was confirmed or suspected to have Coronavirus / COVID-19? No / Unsure 06/30/2021 10:55 AM EST documented as of this encounter Plan of Treatment Not on file documented as of this encounter Visit Diagnoses Not on filedocumented in this encounter Care Teams Industrial Hygienist Relationship Specialty Start Date End Date Yolette Denny MD [address] [place] [address] PCP - General Internal Medicine 02/17/21 Yung Conner MD [address] [place] [address] Specialist Thoracic Surgery 12/22/23 documented as of this encounter
--- OUTSIDE RECORDS SUMMARY | 2025-01-11 14:36 | XMS_ITS | Encounter Summary ---
Author Organization [facility] Address [address] [place] [address] Care Team Providers Care Test Engineering Intern Name Role Phone Yolette Denny MD Primary Care Provider [phone] Yung Conner MD Unavailable Encounter Details Date Type Department Care Team Description 10/12/2023 Orders Only [facility] Medical Group Lung Screening Program [place] [address] [phone] Yung Conner MD [address] [id number] Former smoker Social History Tobacco Use Types Packs/Day Years [...] CT LOW DOSE LUNG SCREEN ANNUAL Routine 10/08/2023 Former smoker documented in this encounter Results * CT LOW DOSE LUNG SCREEN ANNUAL (10/08/2023) Yung Conner MD CT SCANS documented in this encounter Visit Diagnoses Diagnosis Former smoker Personal history of tobacco use, presenting hazards to health documented in this encounter Care Teams Test Engineering Intern Relationship Specialty Start Date End Date Yolette Denny MD [address] [place] [address] PCP - General Internal Medicine 02/17/21 Yung Conner MD [address] [place] [address] Specialist Thoracic Surgery 12/22/23 documented as of this encounter
--- OUTSIDE RECORDS SUMMARY | 2025-01-11 14:36 | XMS_ITS | Encounter Summary ---
Author Organization [facility] Address [address] [place] [address] Care Team Providers Care Party Bus Driver Name Role Phone Evangelista Molina MD Primary Care Provider [phone] Yolette Denny MD Primary Care Provider [phone] Yung Conner MD Unavailable Encounter Details Date Type Department Care Team Description 08/01/2018 [facility] MyChart [address] [place] [address] [phone] Md David Social History Tobacco Use Types Packs/Day Years [...] encounter Miscellaneous Notes * Telephone Encounter - Nacho Velasquez PA-C - 08/02/2018 7:52 AM EDT Rx sent for patches Nacho Velasquez PA-C * Telephone Encounter - Yandy Hurtado M.A. - 08/02/2018 6:59 AM EDT Last office visit 07/19/17 Last office visit with Nacho Velasquez PA-C was 10/29/16 Nacho, Will you order motion sickness patch for pt traveling or does he need to be seen? * Telephone Encounter - Yandy Hurtado M.A. - 08/02/2018 6:53 AM EDTFrom: Kumar Thompson Jr Sent: 08/01/2018 8:48 PM EDT Subject: Request Refill Not On Medication List Request submitted by Kumar Thompson Jr on 08/01/2018 at 8:50:22 PM Form Title: Request Refill Not On Medication List Submitted Data From: Kumar Thompson Jr Primary care provider: Evangelista Molina MD --- Contact Information --- Contact Phone #: [phone] --- Medication Request Information --- Medication name: Transdermal scop 1.5mg/3day Dosage: 1 instructions: 1 every 72 hours as needed for motion sickness # Dispensed: 10 Ordering Provider: Nacho velasquez Pharmacy: [facility] Other Details: I'm going on a trip and need them so I don't get sick documented in this encounter Plan of Treatment Not on file documented as of this encounter Visit Diagnoses Diagnosis Motion sickness, initial encounter- Primary documented in this encounter Care Teams Party Bus Driver Relationship Specialty Start Date End Date Evangelista Molina MD [address] [place] [address] PCP - General Internal Medicine 05/19/15 02/16/21 Yolette Denny MD [address] [place] [address] PCP - General Internal Medicine 02/17/21 Yung Conner MD [address] [place] [address] Specialist Thoracic Surgery 12/22/23 documented as of this encounter
--- OUTSIDE RECORDS SUMMARY | 2025-01-11 14:36 | XMS_ITS | Encounter Summary ---
Author Organization [facility] Address [address] [place] [address] Care Team Providers Care Health Nurse Name Role Phone Yolette Denny MD Primary Care Provider [phone] Yung Conner MD Unavailable Encounter Details Date Type Department Care Team Description 03/10/2022 Safety Risk Lead Report Medical Records [address] [place] [id number] Raisa Curtis Social History Tobacco Use Types Packs/Day Years [...] filedocumented in this encounter Care Teams Health Nurse Relationship Specialty Start Date End Date Yolette Denny MD [address] [place] [address] PCP - General Internal Medicine 02/17/21 Yung Conner MD [address] [place] [address] Specialist Thoracic Surgery 12/22/23 documented as of this encounter
--- NOTE | 2025-01-11 14:45 | MHC.OFFVIS ---
Vital Signs 01/11/25 14:49 Height 5 ft 6 in Weight 168 lb BMI 27.1 BP 106/72 Blood Pressure Location Rt brachial Position Sitting Pulse 88 Pulse Source Pulse Oximeter Pulse Oximetry (%) 97 Oxygen Delivery Method Room Air Intake Visit Reasons: s/p double Candelario Intake Note: Patient follow up for EGD/Colonoscopy screening results. Patient cc: Pt denies any current GI sx or changes since last visit. Multimedia Instructional Designer Required: No Accompanied by: Self / Same As Patient Allergies No Known Allergies (No Known Allergies*) Allergy (Verified 01/11/25 14:45) HPI HPI s/p double Candelario: Details: Patient is a 59-year-old male with PMH of asthma, CHELLE, nicotine dependence and GERD. Can increase PPI or trial alternative Follow-up post upper endoscopy and colonoscopy completed 12/28/24. The patient reports post-endoscopy loose stools occurring every other day without associated abdominal pain, though nausea and vomiting were noted one evening after a meal, attributed to suspected food intolerance. No recurrence since. Patient denies overt blood in stool. No recent constipation despite cessation of stool softeners for several months. Mild reflux symptoms noted but no significant concern, though compliance with medication has been inconsistent. Work schedule has been a barrier to maintaining treatment adherence. [facility] Medical History (Updated 01/11/25 @ 16:47 by Tammie Spain CNP) Tubular adenoma of colon Hemorrhoid Diarrhea Sleep apnea GERD (gastroesophageal reflux disease) Asthma Constipation Personal history of nicotine dependence Bochdalek hernia Surgical History History of surgery Hx of colonoscopy History of esophagogastroduodenoscopy (EGD) History of meniscectomy of right knee History of meniscectomy of left knee Family History Maternal Grandfather Pancreatic cancer Social History Housing: House Alcohol intake: current Alcohol intake frequency: a few times a month Comment: one a week 1 beer Patient Tobacco Use Status: Never used Tobacco Tobacco use type: Cigar Cigarettes Per Day: 1 Years Smoked: (onset 15yo, 1ppd x 29yrs, quit cigs 2009, smokes cigars 4/wk- 25+PYH) e-Cigarette/Vaping Use: Never Used Second Hand Smoke Exposure: Yes service: No Current occupational status: employed Cognitive needs: No Hearing needs: No Vision needs: Yes (Glasses) Review of Systems Const Reports as per HPI ENT Reports as per HPI Card Reports as per HPI Resp Reports as per HPI GI Reports as per HPI Reports as per HPI Physical Exam Vital Signs: BMI result Body Mass Index 27.1 Const General: healthy appearing, no acute distress and well developed Nutritional Appearance: average body habitus Orientation/consciousness: patient oriented x3 HEENT Head: Yes normal to inspection, Yes normocephalic and Yes atraumatic Face and sinus: Yes normal facial exam Eyes General: appearance normal, both eyes and all related structures Neck Neck: Yes normal visual inspection Resp Effort & Inspection: normal respiratory effort, able to speak in complete sentences, no tracheal deviation and symmetric chest movement Neuro General: patient oriented x3 Gait exam (Neuro): Normal gait present Psych Appearance: grossly normal Mental Status: mental status grossly normal Speech and movement: Normal speech and movement present Affect: normal affect Attitude: cooperative Thought process: Normal thought process present Thought content: Normal thought content present Insight: Good insight present (Psych) Judgement: Good judgement present (Psych) Results Reviewed Results Reviewed: Operative Note Date of Service: 12/28/24 Narrative: Procedure: Upper endoscopy and colonoscopy Indication: Dysphagia, CRC screening Endoscopist: Park Palomino MD EGD Procedure: The procedure, indications, preparation and potential complications were reviewed with the patient, who indicated understanding and gave written informed consent to proceed. The endoscope was introduced through the mouth, and advanced to the 2nd part of the duodenum. The mucosa was carefully examined on slow withdrawal of the endoscope. The patient tolerated the procedure well. There were no immediate complications. EGD Findings: Esophagus: Prominent trachealization noted in the esophagus suspicious for underlying eosinophilic esophagitis. The Z-line was at 40 cm and irregular to 38 cm. Cold forceps biopsies were taken from GE junction to rule out Carter's esophagus. Cold forceps biopsies were also taken from middle and lower esophagus to rule out eosinophilic esophagitis. Stomach: Erythema and erosions in the body and antrum. Retroflexion was performed in the cardia. Random cold forceps biopsies were taken from the stomach. Duodenum: Small erosions noted in the 1st and 2nd portions of the duodenum. Cold forceps biopsies were taken for histology. Additional intervention: Soft tip Savary wire was introduced through the biopsy channel of the gastroscope and advanced to the antrum. The gastroscope was then backed out. Savary Reynaldo bougie was advanced over the guidewire and the esophagus was dilated from 16 to 17 mm without any resistance felt. On relook, heme and a small superficial tear was noted at GE junction. Colonoscopy Procedure: The patient was then turned for the colonoscopy. A digital rectal exam was performed which was normal abnormal for external hemorrhoids. A distal attachment cap was affixed to the tip of the scope and the colonoscope was then inserted through the anus and advanced through the colon and advanced to the cecum at 75 cm and terminal ileum. Appendiceal orifice and ileocecal valve were identified. Mucosa was carefully examined under high definition white light as the instrument was slowly withdrawn in a retrograde panoramic fashion. Retroflexion was performed in ascending colon and rectum. The procedure was not difficult. The quality of the prep was BBPS: 2+2+2 = adequate Withdrawal time 13 minutes Limitations: No limitations Findings: Mucosa: Copious liquid stool was present throughout the colon, which was flushed and suctioned out.Normal colon and terminal ileum mucosa to the extent examined.. Protruding lesions: One sessile polyp of size 2 mm noted in the sigmoid colon. Cold snare polypectomy was performed. The polyp was completely removed and retrieved. Medium internal hemorrhoids without stigmata of recent bleeding. Impression: 1. Abnormal esophageal mucosa (biopsy) 2. GE junction stenosis (dilation) 3. Irregular Z-line r/o Carter's (biopsy) 4. Gastritis (biopsy) 5. Duodenitis (biopsy) 6. Fair prep 7. 1 polyp removed 8. Internal and external hemorrhoids Recommendations: Follow-up path results If eosinophilic esophagitis confirmed, will need topical steroid therapy Continue omeprazole daily Avoid NSAIDs If H pylori positive, treatment will be prescribed Repeat colonoscopy in 5 years due to quality of the prep PATHOLOGY: Collected: 12/28/24 Location: [facility] Received: 12/28/24 ADDENDUM REPORT Addendum Addendum #1 Immunostain for H. pylori on B is negative. Additional level with AB/PAS on C is negative for intestinal metaplasia. Controls stain appropriately. Electronically Signed By: Mavis Carlton 01/02/25 1700 Diagnosis A. Duodenum, biopsy: Duodenal mucosa with thickened and mildly blunted villi and chronic/non-specific duodenitis. B. Stomach, random, biopsy: Gastric antral and body mucosa with focal minimal chronic inactive inflammation; negative for intestinal metaplasia and dysplasia. C. Esophagogastric junction, biopsy: Squamocolumnar mucosa with minimal chronic inflammation; no intestinal metaplasia seen on initial levels; negative for dysplasia. D. Esophagus, lower, biopsy: Squamous mucosa with no specific change; no columnar mucosa present. E. Esophagus, middle, biopsy: Squamous mucosa with no specific change; no columnar mucosa present. F. Colon, sigmoid, polyp: Tubular adenoma, likely excised; negative for high-grade dysplasia and carcinoma. Comment: (B): Immunostain for H. pylori pending; addendum to follow. (C): Additional level with AB/PAS stain pending; addendum to follow. Clinical History Pre-Op Dx: Screening, dysphagia Post-Op Dx: Gastritis, duodenitis, EG junction stenosis, external hemorrhoids, colon polyp, fair prep Assessment & Plan Assessment & Plan (1) GERD (gastroesophageal reflux disease): Comment: 12/28/24 EGD-Gastritis, duodenitis, EG junction stenosis s/p dilatation Code(s): K21.9 - Gastro-esophageal reflux disease without esophagitis Category: Medical Qualifiers: Esophagitis presence: esophagitis presence not specified Qualified Code(s): K21.9 - Gastro-esophageal reflux disease without esophagitis Plan: Stable; mild symptoms with notable non-compliance to treatment. Continuing PPI for 8?12 weeks remains essential given prior endoscopy findings of inflammation. Reassess after therapeutic course to consider medication weaning. Additional Testing: None at this time. Medications: -Continue OTC omeprazole daily prior to breakfast?education on timing provided. Lifestyle Recommendations: -Maintain diet low in reflux triggers (spicy, acidic, caffeinated foods). -Promote adherence by incorporating routine timing with daily schedule. Follow-Up Plan: Instructed to follow up after 8?12 weeks of consistent medication use to evaluate symptomatic improvement. (2) Tubular adenoma of colon: Comment: 12/28/24 colonoscopy complete with fair prep- Tubular adenoma(sigmoid, polyp), internal and external hemorrhoids. Recommendation for repeat in five years due to fair prep. Code(s): D12.6 - Benign neoplasm of colon, unspecified Category: Medical Plan: No immediate concern; next screening colonoscopy due in five years. Follow-Up Plan: Repeat colonoscopy with endoscopic surveillance in five years. (3) Diarrhea: Code(s): R19.7 - Diarrhea, unspecified Category: Medical Qualifiers: Diarrhea type: unspecified type Qualified Code(s): R19.7 - Diarrhea, unspecified Plan: Post-procedural diarrhea?likely transient, possibly diet-related or from disruption of gut anali. No associated abdominal pain, nausea, or fever. Symptom management and stool normalization to prevent dehydration and improve gut anali. Additional Testing: None at this time. Medications: -Initiate a probiotic (OTC, daily) to aid in restoring gut anali. -Avoid laxatives or stool softeners while stools remain loose. Lifestyle Recommendations: -Increase dietary fiber (preferably through whole foods: fruits, vegetables, beans). -Hydration encouraged, particularly water intake. Follow-Up Plan: Reassess in 8 weeks for resolution of diarrhea; patient to monitor for any worsening symptoms or recurrence of constipation. (4) Hemorrhoid: Code(s): K64.9 - Unspecified hemorrhoids Category: Medical Qualifiers: Hemorrhoid type: unspecified Qualified Code(s): K64.9 - Unspecified hemorrhoids Plan: Stable. No current symptoms; focus on maintaining stool consistency to prevent flare-ups. Medications: None required at this time. Lifestyle Recommendations: -Continue dietary fiber intake and stay hydrated. -Use sitz baths and OTC medications (as needed) for any future symptomatic flare. Follow-Up Plan: No dedicated hemorrhoid follow-up unless symptoms flare. Plan Follow-up in 3 months or sooner as needed Time: I spent a total of 25 minutes on the date of encounter which includes: Preparing to see the patient (reviewed previous documentation, test results and medical history) Performing a medically appropriate exam and/or evaluation Ordering medications, tests, and procedures Documenting clinical information in the health record Medications: New methylcellulose (laxative) (Citrucel) Take one tablet daily X 2 week, follow by two tablets daily thereafter 180 tabs 2RF Lactobacillus acidophilus Take once tablet twice daily until complete 10,000 mmu cells PO BID 90 caps 0RF Coding Level of Care Code Established Pt Est Pt Level 3 (45705) Patient Type Established Diagnoses Gastroesophageal reflux disease, unspecified whether esophagitis present K21.9 Esophagitis presence: esophagitis presence not specified Tubular adenoma of colon D12.6 Diarrhea, unspecified type R19.7 Diarrhea type: unspecified type Hemorrhoids, unspecified hemorrhoid type K64.9 Hemorrhoid type: unspecified
[2025-01-11 14:49] VITALS: BP 106/72; PULSE 88; O2SAT 97; BMI 27.1
== END 2025-01-11 15:11 | disposition home or self-care (01) ==
LOC: HO.HGI 14:34
PROVIDERS: PCP Internal Medicine; Visit Provider Nurse Practitioner Family
DX: K21.9 Gastro-esophageal reflux disease without esophagitis (principal); D12.6 Benign neoplasm of colon, unspecified; R19.7 Diarrhea, unspecified; K64.9 Unspecified hemorrhoids
CPT/HCPCS: 99213

== ENCOUNTER 2025-04-09 08:25 | Outpatient (AMB) | payer OTHER, SELFPAY ==
--- NOTE | 2025-04-09 08:37 | MHC.OFFVIS ---
Vital Signs 04/09/25 08:38 Height 5 ft 6 in Weight 175 lb BMI 28.2 BP 90/55 L Blood Pressure Location Lt brachial Position Sitting Pulse 78 Pulse Oximetry (%) 97 Oxygen Delivery Method Room Air Intake Visit Reasons: 3 month follow up diarrhea Intake Note: Patient 3 month follow up for diarrhea. Patient denies any GI issues. Commercial Collections Specialist Required: No Accompanied by: Self / Same As Patient Allergies No Known Allergies (No Known Allergies*) Allergy (Verified 01/11/25 14:45) HPI HPI 3 month follow up diarrhea: Details: Patient is a 59-year-old male with PMH of asthma, CHELLE, nicotine dependence and GERD. F/u post-procedural diarrhea. Pt states diarrhea present post-endoscopy/colonoscopy in December has resolved. No current c/o abd pain, N/V, or fever. Pt continues daily probiotic with symptomatic relief. Denies new GI sx. Occasional reflux managed prn with OTC Prilosec; denies current reflux issues. Adhering to dietary and lifestyle guidance, avoiding known triggers. No interim hospitalizations, urgent care visits, or GI flares reported. [facility] Medical History (Updated 01/11/25 @ 16:47 by Tammie Spain CNP) Tubular adenoma of colon Hemorrhoid Diarrhea Sleep apnea GERD (gastroesophageal reflux disease) Asthma Constipation Personal history of nicotine dependence Bochdalek hernia Surgical History History of surgery Hx of colonoscopy History of esophagogastroduodenoscopy (EGD) History of meniscectomy of right knee History of meniscectomy of left knee Family History Maternal Grandfather Pancreatic cancer Social History Housing: House Alcohol intake: current Alcohol intake frequency: a few times a month Comment: one a week 1 beer Patient Tobacco Use Status: Never used Tobacco Tobacco use type: Cigar Cigarettes Per Day: 1 Years Smoked: (onset 15yo, 1ppd x 29yrs, quit cigs 2009, smokes cigars 4/wk- 25+PYH) e-Cigarette/Vaping Use: Never Used Second Hand Smoke Exposure: Yes service: No Current occupational status: employed Cognitive needs: No Hearing needs: No Vision needs: Yes (Glasses) Review of Systems Const Reports as per HPI ENT Reports as per HPI Card Reports as per HPI Resp Reports as per HPI GI Reports as per [facility] Reports as per HPI Physical Exam Vital Signs: Last Vital Signs Pulse 78 04/09/25 08:38 BP 90/55 L 04/09/25 08:38 Pulse Ox 97 04/09/25 08:38 Oxygen Delivery Method Room Air 04/09/25 08:38 BMI result Body Mass Index 28.2 Const General: healthy appearing, no acute distress and well developed Nutritional Appearance: average body habitus Orientation/consciousness: patient oriented x3 HEENT Head: Yes normal to inspection, Yes normocephalic and Yes atraumatic Face and sinus: Yes normal facial exam Eyes General: appearance normal, both eyes and all related structures Neck Neck: Yes normal visual inspection Resp Effort & Inspection: normal respiratory effort, able to speak in complete sentences, no tracheal deviation and symmetric chest movement Cardio Jugular venous distension: no JVD Heart sounds: Murmur heart sound present GI Auscultation: normal bowel sounds Neuro General: patient oriented x3 Gait exam (Neuro): Normal gait present Psych Appearance: grossly normal Mental Status: mental status grossly normal Speech and movement: Normal speech and movement present Affect: normal affect Attitude: cooperative Thought process: Normal thought process present Thought content: Normal thought content present Insight: Good insight present (Psych) Judgement: Good judgement present (Psych) Assessment & Plan Assessment & Plan (1) Diarrhea: Code(s): R19.7 - Diarrhea, unspecified Category: Medical Qualifiers: Diarrhea type: unspecified type Qualified Code(s): R19.7 - Diarrhea, unspecified Plan: Resolution of post-procedure diarrhea, ongoing benefit from probiotic. Additional Testing: None indicated at this time. Medications: Continue OTC probiotic daily as tolerated. Lifestyle Recommendations: Reinforce dietary probiotic sources (fermented foods, yogurt, etc). Referrals / Coordination of Care: None required. Follow-Up Plan: Routine surveillance only. No acute concerns. (2) GERD (gastroesophageal reflux disease): Comment: 12/28/24 EGD-Gastritis, duodenitis, EG junction stenosis s/p dilatation Code(s): K21.9 - Gastro-esophageal reflux disease without esophagitis Category: Medical Qualifiers: Esophagitis presence: esophagitis presence not specified Qualified Code(s): K21.9 - Gastro-esophageal reflux disease without esophagitis Plan: Stable intermittent sx, effective prn PPI. Adherent to dietary/lifestyle modifications. Additional Testing: None indicated given lack of symptoms. Medications: Continue Prilosec 20 mg PO prn for reflux sx. Lifestyle Recommendations: Continue avoidance of GERD triggers (spicy/fatty/fried foods, late eating, overeating). Encourage upright posture after meals, ongoing hydration. Review of educational material from prior visits. Referrals / Coordination of Care: None required at present. Follow-Up Plan: RTC in 1 year (December), sooner if change in sx. Plan Follow-up in one year or sooner as needed Time: I spent a total of 10 minutes on the date of encounter which includes: Preparing to see the patient (reviewed previous documentation, test results and medical history) Performing a medically appropriate exam and/or evaluation Ordering medications, tests, and procedures Documenting clinical information in the health record Coding Level of Care Code Established Pt New Pt Level 2 (78217) Patient Type Established Diagnoses Diarrhea, unspecified type R19.7 Diarrhea type: unspecified type Gastroesophageal reflux disease, unspecified whether esophagitis present K21.9 Esophagitis presence: esophagitis presence not specified
[2025-04-09 08:38] VITALS: BP 90/55; PULSE 78; O2SAT 97; BMI 28.2
--- OUTSIDE RECORDS SUMMARY | 2025-04-09 08:42 | XMS_ITS | Clinical Summary ---
Author Organization [facility] Address [address] [place] [id number] Phone Care Team Providers Care Tie Fastener Name Role Phone Irvin Johnson MD Primary Care Provider [phone] Allergies No known active allergies Medications albuterol [...] 2 Obstructive sleep apnea 02/09/2017 Overview (05/03/2024): [facility] Home Polysomnogram: Date 02/03/2017; AHI 5, Unclassified apneas 0; Obstructive apneas 2; Central apneas 0; Mixed apneas 0; hypopneas 19; average oxygen saturation 93% (lowest 79% without saturations <88% for 5% or more of study) [facility] Polysomnogram treatment study. Date 04/27/2017 . SE 86 % SM 90 %; spent 16 % of the study in REM. At the optimal pressure of CPAP @ 9; RDI 0.2 (AHI 0.2), Central apneas 0; Obstructive apneas 0; Mixed apneas 0; hypopneas 1; RERAs 0; and, average oxygen saturation was 95%. For the entire study, PLMs ~38. [facility] diagnostic polysomnogram 06/04/2021. Weight 201; BMI 33. AHI 15; REM AHI 26. 86 hypopneas; no apneas. Average oxygen saturation 92% with oxygen sharon 78%. Time with saturations less than 89% was 11.6 minutes. PLM's at 16. Obstructive sleep apnea-moderate with all hypopneas; without nocturnal hypoxemia but with PLMD per 2021 polysomnogram. COPD (chronic obstructive pu lmonary disease) ([facility] V24, [facility] V28) 10/29/2016 Chronic RUQ pain 12/15/2012 Overview (05/03/2024): Onset approx 1970's. Normal CT, US, EGD 2012. Improved with 30 lb weight loss as of 09/05/2015. Asthma 09/05/2012 Hyperlipidemia 01/09/2010 Immunizations Immunization Administration Dates Next Due Influenza trivalent, 0.5mL, preservative free (Fluarix; FluLaval; Fluzone) ages 6mo and older (Afluria) 3 years and older 02/24/2011 Influenza, Unspecified 02/13/2021 Pneumococcal polysaccharide 23 valent (Pneumovax 23) 2yo and older 06/09/2016 Tdap Tetanus diptheria acell ular pertussis (Boostrix; Adacel) 7yo and older 06/30/2021,01/05/2010 Zoster recombinant (Shingrix) 19yo and older ,03/01/2022 Surgical History Surgery Date Site/Laterality Comments ESOPHAGOGASTRODUODENOSCOPY 2012 PROCEDURE: [place] ESOPHAGOGASTRODUODENOSCOPY TRANSORAL DIAGNOSTIC; COMMENT: normal COLONOSCOPY 09/05/2015 [...] of 3 - 19+ 3-dose series) 1984 RSV Immunization Adult Patients (1 - Risk 50-74 years 1-dose series) 09/02/2015 Pneumococcal Vaccine: 50+ Years (2 of 2 - PCV) 06/09/2017 06/09/2016 HIV Screening 04/23/2022 Social Influencers of Health Screening 04/23/2022 Depression Screening 05/16/2024 Lung Cancer Screening (Low Dose CT) 10/07/2024 10/08/2023, 09/23/2022, 09/15/2021 COVID-19 Vaccine ( - 2024-2 6 season) 2025 03/20/2021, 06/27/2020, 05/29/2020 Influenza Vaccine (#1) 2025 , 02/24/2011 Colorectal Cancer Screening: Colonoscopy 09/04/2025 09/05/2015 Cholesterol Screening (Lipid Panel) 10/24/2028 10/25/2023, 10/25/2023 DTaP,Tdap,and Td Vaccines (3 - Td or Tdap) 06/30/2031 06/30/2021, 01/05/2010 Hepatitis C Screening Completed 05/20/2015 Zoster Vaccines [...] mg/dL Blood Venous blood specimen / Unknown Historical Provider LAB BLOOD ORDERABLES Tiana l Result * CT LUNG SCREENING LOW DOSE (09/23/2022 7:44 PM EDT) Anatomical Region Laterality Modality Computed Tomogra phy 09/18/2022 7:22 AM EDT Narrative 09/23/2022 7:44 PM EDT [facility] Diagnostic Imaging Department [address] [place] [address] Patient: DARRYL GOODWIN JR/Age/Sex: 1965 - 57 - M Unit#: [id number] Location/Status: SPDICATLS/REG CLI Mnemonic/Ordering Site: [facility] Ordering Physician: YUNG LOPEZ MD CT [...] Physician: BERNICE VASQUES MD Electronically Signed by: BENRICE VASQUES MD Dic Date/Time: 09/23/221934 Sign date/Time: 09/23/221943 Procedure Note Bernice Vasques MD - 06/17/2023 [facility] Diagnostic Imaging Department [address] [place] [id number] Patient: BUDDY DUMONTDARRYL/Age/Sex: 1965 - 57 - M Unit#: [id number] Location/Status: SPDICATLS/REG CLI Mnemonic/Ordering Site: CTLUNGLD/SPCT Ordering Physician: YUNG LOPEZ MD CT Lung [...] PROCEDURES Final Result * Colonoscopy (09/05/2015) Pathologist [facility] Colonoscopy normal, abstracted Anatomical Region Laterality Modality Other Danae Naranjo MD HEALTH MAINTENANCE Final Result * Hepatitis C Screening (05/20/2015) Pathologist [facility] Hepatitis C Screening abstracted Historical Jose A VILLEGAS HEALTH MAINTENANCE Final Result from Last 3 Months or Most Recently Relevant to Health Maintenance Insurance [facility] MEDICAID Care Teams Tie Fastener Relationship Specialty Start Date End Date Irvin Johnson MD [address] [place] [address] PCP - General Internal Medicine 12/28/21
== END 2025-04-09 08:53 | disposition home or self-care (01) ==
LOC: HO.HGI 08:26
PROVIDERS: PCP Internal Medicine; Visit Provider Nurse Practitioner Family
DX: R19.7 Diarrhea, unspecified (principal); K21.9 Gastro-esophageal reflux disease without esophagitis
CPT/HCPCS: 99212